=== PATIENT | female | born 1975 | race Caucasian/White ===

== ENCOUNTER 2024-02-08 23:57 | Inpatient (IN) | payer OTHER, SELFPAY ==
[2024-02-08 19:06] VITALS: BP 113/67
[2024-02-08 19:34] VITALS: BP 102/71
[2024-02-08 19:40] VITALS: BMI 33.9
--- NOTE | 2024-02-08 19:44 | EDRN ---
Pt has been having side effects from new chemo, doxyl. Last dose chemo was Friday. Pt being treated for endometrial cancer. Pt has had fevers, fatigue, nausea for couple days. T max 99.8 at home. Pt vomited last night which was only time she
vomited. Pt has chronic dizziness. Pt had diarrhea after triage tonight. Pt having lower back pain currently. Pt took compazine 2 hours ago which helped a little. Pt denies cp, sob, urinary symptoms.
--- NOTE | 2024-02-08 19:50 | EDRN ---
VAT called to access port per pt request
[2024-02-08] MEDS: ZOFRAN 4 MG IV (20:06)
--- NOTE | 2024-02-08 20:12 | EDRN ---
VAT accessing pt's port
[2024-02-08] MEDS: NSS 1000 IV ×2 (20:15→23:01)
[2024-02-08] MEDS: DILAUDID 1 MG IV (20:19)
--- NOTE | 2024-02-08 20:27 | EDRN ---
Second set blood cultures drawn from [facility] without difficulty, pressure dressing applied - pt much more relaxed after dilaudid administration. Pt lying quietly, no long moving constantly to try and relieve back pain. Pt requested this RN insert IV
and draw first set blood cultures prior to VAT accessing port so she could get nausea medication quicker.
[2024-02-08 21:00] VITALS: BP 99/76
[2024-02-08 21:05] LABS: COVID-19 Antigen Negative (Negative)
--- NOTE | 2024-02-08 21:08 | ED.GENMED ---
History of Present Illness
<Carolyn Jefferson PA-C - Last Filed: 02/09/24 03:52>
General
Chief Complaint: Fever
Source: patient
Exam Limitations: none
Time Seen by Provider: 02/08/24 19:58
Nursing documentation reviewed up to this point in time: agreed with
History of Present Illness
History of Present Illness:
pt i a 48 y/o F with h/o recurrent endometrial cancer
initially treated in 2020 with hysterectomy and chemo
had recurrence in august 2023 wiht large abdominal tumor
she is followed by sanjeev zaldivar
was on a chemo but swithced recently and was given first dose on 02/03. she ws told to expect nausea, vomiting, fatigue, fever
she sasy she started feeling badly yesterday with low grade temp 99 and nausae/vmoiting several times. 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
pt has had chronic ongoin lower back pain which is unchanged
she has palpable masses in her abdomen chronically whihc are her tumors
she also had some diarrhea at home
no urinary symptoms cough, headach, sore throat, neck pain
<Devonte Juan MD - Last Filed: 02/08/24 21:40>
Travel History
Have you had any contact with someone who has COVID-19?: No
Do you have any symptoms of coronavirus? Fever > 100 degrees, chills, cough, shortness of breath, sore throat, loss of taste or smell, muscle aches, or headache?: No
Past History
<Carolyn Jefferson PA-C - Last Filed: 02/09/24 03:52>
Social History
Tobacco: Non-smoker
Alcohol: None
Drug: None
<Devonte Juan MD - Last Filed: 02/08/24 21:40>
Past History
ED Past Medical History: Cancer (Endometrial) and GERD
ED Past Surgical History: Cholecystectomy and Gynecological
Review of Systems
<Carolyn Jefferson PA-C - Last Filed: 02/09/24 03:52>
Review of Systems
Allergies reviewed?: Yes
All Other Systems: Not applicable
Phy Exam
<Carolyn Jefferson PA-C - Last Filed: 02/09/24 03:52>
Physical Exam
Physical Exam:
GENERAL: Alert , chronically ill appearing
HEAD: NCAT
EYE: pupils equal and reactive, no nystagmus, photophobia
NECK: Supple,full rom, nontender
ENT: o/p clr, dry
CARDIAC: tachycardic . no edema
LUNGS: Clear breath sounds bilaterally, no acute respiratory distress, no wheezes/rales/rhonchi
ABDOMEN: palpable masses in the abdomen, no significant tendenress, normal bwoelsounds
NEUROLOGICAL: Alert and orientedx 4,
SKIN: Warm and dry, skin intact.
MUSCULOSKELETAL: No edema, well perfused.
PSYCH: Normal and appropriate interaction.
Course
<Carolyn Jefferson PA-C - Last Filed: 02/09/24 03:52>
Orders/Labs/Results
Orders:
Orders
02/08/24 19:58
Electrocardiogram (*1) Urgent
Reason for Study: QTc Monitoring
EKG- Treatment ONCE
02/08/24 20:00
Ondansetron Injectable [Zofran] 4 mg .ROUTE .[facility]
02/08/24 20:03
Blood Culture Q30M
ADRIANA Source: Blood/Venous
Specimen Description:
02/08/24 20:04
Cardiac Monitoring- Treatment ONCE
O2 Therapy [RESP] Urgent
Titrate/Wean O2 to maintain O2 sat greater than (%): 93
Special Instructions: TO MAINTAIN CONTINUOUS O2 SATS > OR = 93%
Pulse Ox/cont/shift [RESP] Urgent
Quantity: 1
Special Instructions: CONTINUOUS
02/08/24 20:06
Ondansetron Injectable [Zofran] 4 mg IV NOW STA
02/08/24 20:09
Complete Blood Count/With Diff Urgent
Comprehensive Metabolic Panel Urgent
Lactic Acid Q4H
Comment: ON ICE, CANCEL 2ND ORDER IF FIRST LACTIC ACID LEVEL <2
Lipase Urgent
02/08/24 20:11
0.9% Sodium Chloride 1000 ml [Nss] 1,000 ml IV BOLUS
HYDROmorphone [Dilaudid] 1 mg IV NOW STA
02/08/24 20:31
Blood Culture Q30M
ADRIANA Source: Blood/Venous
Specimen Description:
02/08/24 20:32
COVID-19 Antigen Urgent
Source: Nasal Swab
Influenza A+B Rapid Molecular Urgent
ADRIANA Source: Nasal Swab
Specimen Description:
02/08/24 22:22
Urinalysis Reflex To Culture Urgent
Date Specimen was Collected: 02/08/24
Time Specimen was Collected: 22:18
02/08/24 22:53
0.9% Sodium Chloride 1000 ml [Nss] 1,000 ml IV BOLUS
Acetaminophen [Tylenol] 1,000 mg PO NOW STA
02/08/24 23:06
CR Chest - 2 Views Urgent
Comment:
Reason For Exam: fever chemo
02/08/24 23:12
Piperacillin/Tazo 3.375 Gram [Zosyn] 3.375 gram in 50 ml IV NOW
02/08/24 23:55
Admit/Transfer Patient As Directed
Co-Sign Provider:
Level of Care: Inpatient admission
Assign to:: Telemetry
Physician / Group: htay
Diagnosis: SIRS pike clinical picture- unclear origin Fever of unclear origin
Reason for Telemetry: Other
Other Reason for Telemetry: SIRS
Date to Stop Telemetry: 02/10/24
Time to Stop Telemetry: 11:00
Reason for Hospitalization: SIRS pike clinical picture- unclear origin
Fever of unclear origin - Infective vs Tumor fever
Significant leucocytosis
Expected length of stay greater than two midnights?: Yes
ELOS- Estimated Length of Stay in days: 3
I certify the patient meets the requirements for IP care: Yes
02/08/24 23:57
Code Status As Directed
Resuscitation Status: Full Code
02/09/24 01:24
0.9% Sodium Chloride 1000 ml [Nss] 1,000 ml IV 100 mls/hr
Calcium Carbonate Chewable [Tums] 1 tablet PO BIDPRN PRN
VANCOMYCIN Pharmacy to Dose [VANCOCIN Pharmacy to Dose] 1 each Pharmacy To Prepare [Call Pharmacy To Prepare] 0 ml IV PER PROTOCOL
02/09/24 01:24
Consult Notification Routine
Specialty to Notify: Infectious Disease
INFECTIOUS DISEASE CONSULT Routine
Consulting Provider: Larissa Swift
Was physician already notified: No
Reason for consult: SIRS pike clinical picture- Fever of unclear origin - Tumor fever vs infect
Activity As Directed
Activity Level: With Assistance
Intake/ Output As Directed
Frequency: Per unit guidelines
Pneumatic Compression Sleeves As Directed
Type: Knee high
Vital Signs As Directed
Frequency: Per unit guidelines
Weight As Directed
Frequency: Daily
DX Deep Vein Thrombosis Video Routine
02/09/24 Breakfast
Clear Liquid
At Your Request: Full Participation
Comment: advance as tolerates
Complete Blood Count/With Diff IN AM
Comprehensive Metabolic Panel IN AM
Piperacillin/Tazo 3.375 Gram [Zosyn] 3.375 gram in 50 ml IV Q6H
02/09/24 08:00
Magnesium l-Lactate [Mag-Tab Sr] 84 mg PO DAILY
Pantoprazole [Protonix] 40 mg PO DAILY
02/09/24 22:00
Famotidine [Pepcid] 20 mg PO HS
Prochlorperazine [Compazine] 10 mg PO HS
02/10/24 11:00
DC Protocol for Telemetry ONCE
Abnormal Lab Results
02/08/24
20:09
WBC 15.0 H 10^3/uL
(4.8-10.8)
RBC 3.40 L 10^6/uL
(4.20-5.40)
Hgb 8.8 L g/dL
(12.0-16.0)
Hct 27.5 L %
(37.0-47.0)
MCV 80.9 L fL
(81.0-99.0)
MCH 25.9 L pg
(27.0-31.0)
MCHC 32.0 L g/dL
(33.0-37.0)
RDW 18.0 H %
(11.5-14.5)
Abs Immat Gran (auto) 0.1 H 10^3/uL
(0-0.05)
Absolute Neuts (auto) 12.9 H 10^3/uL
(1.4-6.5)
Absolute Lymphs (auto) 1.0 L 10^3/uL
(1.2-3.4)
Absolute Monos (auto) 0.9 H 10^3/uL
(0.1-0.6)
Immature Gran % 0.7 H %
(0-0.5)
Neutrophils % 86.3 H %
(42.2-75.2)
Lymphocytes % 6.7 L %
(20.5-51.1)
Sodium 132 L mmol/L
(135-145)
Glucose 120 H mg/dl
(70-99)
AST 114 H U/L
(14-36)
Total Protein 6.1 L g/dl
(6.3-8.2)
02/08/24 20:09
02/08/24 20:09
Vital Signs
Initial and Last Documented VS:
Initial Vital Signs
Temp Pulse Resp BP
98.4 F 127 18 113/67
02/08/24 19:06 02/08/24 19:06 02/08/24 19:06 02/08/24 19:06
Last Documented Vital Signs
Temp Pulse Resp BP Pulse Ox
98.1 F 103 18 101/61 95
02/09/24 03:00 02/09/24 03:00 02/09/24 03:00 02/09/24 03:00 02/09/24 03:00
<Devonte Juan MD - Last Filed: 02/08/24 21:40>
Orders/Labs/Results
Orders:
Orders
02/08/24 19:58
Electrocardiogram (*1) Urgent
Reason for Study: QTc Monitoring
EKG- Treatment ONCE
02/08/24 20:00
Ondansetron Injectable [Zofran] 4 mg .ROUTE .[facility]
02/08/24 20:03
Blood Culture Q30M
ADRIAAN Source: Blood/Venous
Specimen Description:
02/08/24 20:04
Cardiac Monitoring- Treatment ONCE
O2 Therapy [RESP] Urgent
Titrate/Wean O2 to maintain O2 sat greater than (%): 93
Special Instructions: TO MAINTAIN CONTINUOUS O2 SATS > OR = 93%
Pulse Ox/cont/shift [RESP] Urgent
Quantity: 1
Special Instructions: CONTINUOUS
02/08/24 20:06
Ondansetron Injectable [Zofran] 4 mg IV NOW STA
02/08/24 20:09
Complete Blood Count/With Diff Urgent
Comprehensive Metabolic Panel Urgent
Lactic Acid Q4H
Comment: ON ICE, CANCEL 2ND ORDER IF FIRST LACTIC ACID LEVEL <2
Lipase Urgent
02/08/24 20:11
0.9% Sodium Chloride 1000 ml [Nss] 1,000 ml IV BOLUS
HYDROmorphone [Dilaudid] 1 mg IV NOW STA
02/08/24 20:31
Blood Culture Q30M
ADRIANA Source: Blood/Venous
Specimen Description:
02/08/24 20:32
COVID-19 Antigen Urgent
Source: Nasal Swab
Influenza A+B Rapid Molecular Urgent
ADRIANA Source: Nasal Swab
Specimen Description:
02/08/24 22:22
Urinalysis Reflex To Culture Urgent
Date Specimen was Collected: 02/08/24
Time Specimen was Collected: 22:18
02/08/24 22:53
0.9% Sodium Chloride 1000 ml [Nss] 1,000 ml IV BOLUS
Acetaminophen [Tylenol] 1,000 mg PO NOW STA
02/08/24 23:06
CR Chest - 2 Views Urgent
Comment:
Reason For Exam: fever chemo
02/08/24 23:12
Piperacillin/Tazo 3.375 Gram [Zosyn] 3.375 gram in 50 ml IV NOW
02/08/24 23:55
Admit/Transfer Patient As Directed
Co-Sign Provider:
Level of Care: Inpatient admission
Assign to:: Telemetry
Physician / Group: htay
Diagnosis: SIRS pike clinical picture- unclear origin Fever of unclear origin
Reason for Telemetry: Other
Other Reason for Telemetry: SIRS
Date to Stop Telemetry: 02/10/24
Time to Stop Telemetry: 11:00
Reason for Hospitalization: SIRS pike clinical picture- unclear origin
Fever of unclear origin - Infective vs Tumor fever
Significant leucocytosis
Expected length of stay greater than two midnights?: Yes
ELOS- Estimated Length of Stay in days: 3
I certify the patient meets the requirements for IP care: Yes
02/08/24 23:57
Code Status As Directed
Resuscitation Status: Full Code
02/09/24 01:24
0.9% Sodium Chloride 1000 ml [Nss] 1,000 ml IV 100 mls/hr
Calcium Carbonate Chewable [Tums] 1 tablet PO BIDPRN PRN
VANCOMYCIN Pharmacy to Dose [VANCOCIN Pharmacy to Dose] 1 each Pharmacy To Prepare [Call Pharmacy To Prepare] 0 ml IV PER PROTOCOL
02/09/24 01:24
Consult Notification Routine
Specialty to Notify: Infectious Disease
INFECTIOUS DISEASE CONSULT Routine
Consulting Provider: Larissa Swift
Was physician already notified: No
Reason for consult: SIRS pike clinical picture- Fever of unclear origin - Tumor fever vs infect
Activity As Directed
Activity Level: With Assistance
Intake/ Output As Directed
Frequency: Per unit guidelines
Pneumatic Compression Sleeves As Directed
Type: Knee high
Vital Signs As Directed
Frequency: Per unit guidelines
Weight As Directed
Frequency: Daily
DX Deep Vein Thrombosis Video Routine
02/09/24 Breakfast
Clear Liquid
At Your Request: Full Participation
Comment: advance as tolerates
Complete Blood Count/With Diff IN AM
Comprehensive Metabolic Panel IN AM
Piperacillin/Tazo 3.375 Gram [Zosyn] 3.375 gram in 50 ml IV Q6H
02/09/24 08:00
Magnesium l-Lactate [Mag-Tab Sr] 84 mg PO DAILY
Pantoprazole [Protonix] 40 mg PO DAILY
02/09/24 22:00
Famotidine [Pepcid] 20 mg PO HS
Prochlorperazine [Compazine] 10 mg PO HS
02/10/24 11:00
DC Protocol for Telemetry ONCE
Abnormal Lab Results
02/08/24
20:09
WBC 15.0 H 10^3/uL
(4.8-10.8)
RBC 3.40 L 10^6/uL
(4.20-5.40)
Hgb 8.8 L g/dL
(12.0-16.0)
Hct 27.5 L %
(37.0-47.0)
MCV 80.9 L fL
(81.0-99.0)
MCH 25.9 L pg
(27.0-31.0)
MCHC 32.0 L g/dL
(33.0-37.0)
RDW 18.0 H %
(11.5-14.5)
Abs Immat Gran (auto) 0.1 H 10^3/uL
(0-0.05)
Absolute Neuts (auto) 12.9 H 10^3/uL
(1.4-6.5)
Absolute Lymphs (auto) 1.0 L 10^3/uL
(1.2-3.4)
Absolute Monos (auto) 0.9 H 10^3/uL
(0.1-0.6)
Immature Gran % 0.7 H %
(0-0.5)
Neutrophils % 86.3 H %
(42.2-75.2)
Lymphocytes % 6.7 L %
(20.5-51.1)
Sodium 132 L mmol/L
(135-145)
Glucose 120 H mg/dl
(70-99)
AST 114 H U/L
(14-36)
Total Protein 6.1 L g/dl
(6.3-8.2)
02/08/24 20:09
02/08/24 20:09
Vital Signs
Initial and Last Documented VS:
Initial Vital Signs
Temp Pulse Resp BP
98.4 F 127 18 113/67
02/08/24 19:06 02/08/24 19:06 02/08/24 19:06 02/08/24 19:06
Last Documented Vital Signs
Temp Pulse Resp BP Pulse Ox
98.1 F 103 18 101/61 95
02/09/24 03:00 02/09/24 03:00 02/09/24 03:00 02/09/24 03:00 02/09/24 03:00
<Carolyn Jefferson PA-C - Last Filed: 02/09/24 03:52>
MDM/Problems Addressed
Differential Diagnosis Includes:
neutropenia, flu, covid, pna, uti, chemo therapy drug induced fever
MDM/Problems Addressed:
maria luisa evans endometrial cancer on chemo, known abd masses; started new chemo on friday, fatigue, vomiting, low grade temp at home 99; has chronic pain in back but otherwise no other complaints; palpable abdominal masses on exam; wbc 15, not
neutropenic; ua neg, lactate normal blood cultures pending; flu and covid neg; i spoke with oncologist dr. sprague at the [facility] who said this chemo doesn't usualy give high fever, and her temp now is 102 and bp 90s; getting empiric abx per oncology
request
<Carolyn Jefferson PA-C - Last Filed: 02/09/24 03:52>
*Critical Care Note
Total Time (30-74mins, 75-104mins- exclusive of procedures): Not Applicable
<Devonte Juan MD - Last Filed: 02/08/24 21:40>
ED Attending Note
Patient seen and examined by attending physician: Yes
I performed the substantive portion of visit, reviewed & personally made and approve the management plan that is documented in note by myself or MANNY.: Yes
ED Attending Note:
48-year-old female complaining of severe fatigue sleepiness some nausea and vomiting starting the last 48 hours. Patient started a new chemotherapy regimen for her endometrial cancer 3 to 4 days ago. She was told this might be the side effects of
the chemo. She has a borderline temperature. She denies chest pain shortness of breath pleuritic pain she denies new abdominal pain she has ongoing low back pain that is slightly more progressive but has been ongoing. She also is urinating
frequency but has no dysuria flank pain
On exam patient is chronically ill-appearing but nontoxic. Lungs are clear and equal. Heart regular rate and rhythm. Abdomen with multiple palpable masses. No severe tenderness rebound or guarding. Extremities are warm and dry and unremarkable.
Symptoms likely secondary to her chemotherapy although consideration for infectious etiology. She has no lung symptoms. Back issues have been ongoing. She is neurologically stable. Labs and urine pending.
-
Portions of this chart may have been created with voice recognition software.� Occasional wrong word or��sound alike� substitutions may have occurred due to the inherent limitations of voice recognition software.
Discharge Plan
Departure
Patient Disposition: Admit
Date of Disposition: 02/08/24
Time of Disposition: 22:54
Admit to: Med/Surg
Presentation/result/management discussed w/ accepting MD/DO: Hospitalist
Condition: Fair
Covid-19: Negative COVID-19
Discharge Problem:
Fever, Dehydration, Immunocompromised
Interventions
Interventions:
*Risk Screen - Suicide Last Done: 02/08/24 19:06
*General Assessment Last Done: 02/08/24 19:06
*Neglect/Abuse Screening Last Done: 02/08/24 19:06
ED- Fall Risk Assessment Last Done: 02/08/24 20:37
*ED COVID-19 Vaccine History Last Done: 02/08/24 19:40
*Nursing Disposition Last Done: 02/09/24 01:21
ED- Neurological Assessment Last Done: 02/08/24 19:50
ED-Skin Assessment Last Done: 02/08/24 19:50
Discharge Date and Time
Discharge Date/Time: 02/09/24 01:21
[2024-02-08 21:25] LABS: % Basophils 0.1 % (0-2); % Eosinophils 0.1 % (0-6); % Immature Granulocytes 0.7 % (0-0.5); % Lymphocytes 6.7 % (20.5-51.1); % Monocytes 6.1 % (1.7-9.3); % Neutrophils 86.3 % (42.2-75.2); Absolute Immature Granulocytes 0.1 10^3/uL (0-0.05); Absolute Monocytes 0.9 10^3/uL (0.1-0.6); Absolute Neutrophils 12.9 10^3/uL (1.4-6.5); Hematocrit 27.5 % (37.0-47.0); Hemoglobin 8.8 g/dL (12.0-16.0); Mean Corpuscular Hgb 25.9 pg (27.0-31.0); Mean Corpuscular Volume 80.9 fL (81.0-99.0); Mean Platelet Volume 9.9 fL (7.4-10.4); Nucleated Red Blood Cells % 0 %; Platelet Count 329 10^3/uL (130-400)
[2024-02-08 22:32] LABS: Urine Albumin Negative (Neg - Trace); Urine Bilirubin Negative (Negative); Urine Character Clear (Clear); Urine Color Straw; Urine Glucose Negative (Negative); Urine Ketone Negative (Negative); Urine Leukocyte Negative (Negative); Urine Nitrite Negative (Negative); Urine Occult Blood Negative (Negative); Urine Urobilinogen Negative (Neg - 1+)
[2024-02-08 22:42] LABS: ALT (SGPT) 29 U/L (0-35); AST (SGOT) 114 U/L (14-36); Albumin 3.5 g/dl (3.5-5.0); Alkaline Phosphatase 116 U/L (38-126); Blood Urea Nitrogen 12 mg/dl (7-17); Calcium 8.6 mg/dl (8.4-10.2); Carbon Dioxide 28 mmol/L (22-30); Chloride 101 mmol/L (98-107); Estimated Creatinine Clearance 121 ml/min; Glucose 120 mg/dl (70-99); Lipase 48 U/L (23-300); Potassium 3.9 mmol/L (3.5-5.1); Sodium 132 mmol/L (135-145); Total Bilirubin 0.4 mg/dl (0.2-1.3); Total Protein 6.1 g/dl (6.3-8.2); eGFR > 60.00
[2024-02-08 23:00] VITALS: BP 98/67
[2024-02-08] MEDS: TYLENOL 1000 MG PO (23:02)
--- NOTE | 2024-02-08 23:50 | HPS.HSE ---
Family Physician
-
Family Physician: Taurus Schwab
Chief Complaint
-
fever , fatigue, N/V
History of Present Illness
48F HX recurrent endometrial ca CA with large abdominal tumor, on recent new chemo regime- first dose on 02/03 t [facility]
pw fever , fatigue and leucocytosis. Reports several episodes of N/V before onset of low grade fever
N/V is anticipated post chemo by P oncologist.
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
So far she had 1 dose of Compazine today and tylenol CREDIT COLLECTIONS MANAGER
Denied sick exposure
ROS:
Non tender Rt upper chest PORT
Denied urinary symptoms, cough,
Medical History
Past Medical History
Past Medical History: Reports Cancer (Recurrent Endometrial CA , large abdominal tumor )
Past Surgical History: Reports Cholecystectomy and Gynocological (Hysterectomy )
Social History
Tobacco: Non-smoker
Alcohol: None
Drug: None
Family History
Family History: Not pertinent
Allergies / Home Medications
Allergies reflects when Allergies were last updated in [employer].
Home Medications with original date entered in [employer]
Allergy/Medication List:
Allergies
Allergy/AdvReac Type Severity Reaction Status Date / Time
pembrolizumab [From Keytruda] Allergy Unknown Verified 02/08/24 19:42
Sulfa (Sulfonamide Allergy Unknown Verified 01/14/22 16:05
Antibiotics)
sulfamethoxazole Allergy Unknown Verified 02/08/24 19:42
[From Bactrim]
trimethoprim [From Bactrim] Allergy Unknown Verified 02/08/24 19:42
Home Medications
calcium carbonate 200 mg calcium (500 mg) chewable tablet (Tums) 200 mg PO BIDPRN PRN gerd 09/21/23
dicyclomine 10 mg capsule 10 mg PO HS Gastrointestinal Issue 09/21/23
famotidine 20 mg tablet (Pepcid AC) 20 mg PO HS Gastrointestinal Issue 09/21/23
olanzapine 5 mg tablet 5 mg PO HS Mental Health/Anxiety 09/21/23
prochlorperazine maleate 10 mg tablet 10 mg PO HS Gastrointestinal Issue 09/21/23
therapeutic multivitamin 1 tab PO DAILY Supplement 09/21/23
pantoprazole 40 mg tablet,delayed release 40 mg PO DAILY Gastrointestinal issue #30 tabs 09/25/23
magnesium 25 mg PO DAILY 02/08/24
Review of Systems
-
Constitutional: Reports Fever and Fatigue
EENT: Reports No Symptoms
Respiratory: Reports No Symptoms
Cardiac: Reports No Symptoms
Abdomen/GI: Reports Nausea, Vomiting and Diarrhea
: Reports No Symptoms
Musculoskeletal: Reports No Symptoms
Skin: Reports No Symptoms
Neurological: Reports No Symptoms
Endocrine: Reports No Symptoms
Hematologic/Lymphatic: Reports No Symptoms
Psych: Reports No Symptoms
Physical Exam
Vital Signs
Vital Signs
Temp Pulse Resp BP Pulse Ox
102 F H 117 26 98/67 97
02/08/24 22:52 02/08/24 23:00 02/08/24 23:00 02/08/24 23:00 02/08/24 19:34
Physical Exam
General: Well Developed, Well Nourished, Comfortable, Conversant and Other (Not toxic looking ); No Respiratory Distress
HEENT: NormoCephalic and Anicteric
Respiratory: Clear; No Wheezes or Rhonchi
Cardiac: S1/S2, Regular Rhythm and Tachycardia (chronic )
Breast: Deferred by me
GI: Soft, Non Tender, Non Distended and Normal Bowel Sounds
Genito-urinary: Deferred by me
Musculoskeletal: No Edema
Skin: Warm
Neuro: AO x 3 and Nonfocal/grossly intact
Psych: Calm
Laboratory Results
-
02/08/24 20:09
02/08/24 20:09
Laboratory Results
Lactic Acid 1.0 mmol/L (0.7-2.0) 02/08/24 20:09
Total Bilirubin 0.4 mg/dl (0.2-1.3) 02/08/24 20:09
AST 114 U/L (14-36) H 02/08/24 20:09
ALT 29 U/L (0-35) 02/08/24 20:09
Alkaline Phosphatase 116 U/L (38-126) 02/08/24 20:09
Lipase 48 U/L (23-300) 02/08/24 20:09
Data Reviewed
-
Lab Data: Labs Reviewed by me
Old Records: Reviewed
Impression/Plan
-
Data
WCC 15 - not neutropenic
Hgb 8.8 - baseline mid to hi 7s
Na 132
nl eGFR
NEG UA
Nl LA
NEG FLU/Covid
BCx sent
Pending CXR
Last hospitalist admission: 09/21/23 - 09/25/23
DC Dxs: acute GIB suspected source was small bowel. ACBLA required 6 units of PRBCs , NEG EGD and colonoscopy for source
ASSESSMENT & PLAN
Fever of unclear origin - Infective vs Tumor fever
Significant leucocytosis
Immunocompromised host
On chemo since 02/15/24 @ [facility] for Endometrial carcinoma with peritoneal adenopathy
- NEG UA
- Nl LA
- NEG FLU/Covid
- BCx sent
- Pending CXR
- Empiric IV vanco and Zosyn
- ID consult
HX recurrent endometrial CA in 2022 with large abdominal tumor followed at [facility]
Initially treated in 2020 with hysterectomy and chemo
- on recent new chemo regime- first dose on 02/03
ACDz due to cancer dz
stable HGb 8s
Hemodynamically stable
Known HX tachycardia
Hemodynamically stable.
DVT Px: SCD
Code: Full code
IP TLM
[2024-02-09] VITALS (7 sets, daily range): BP systolic 98–109; BP diastolic 53–66; BMI 34.1
[2024-02-09] MEDS: ZOSYN 50 IV ×3 (00:10→11:48)
--- NOTE | 2024-02-09 00:17 | EDRN ---
Called pharmacy for vancomycin
[2024-02-09] MEDS: VANCOCIN 540 MG IV (00:40)
[2024-02-09] MEDS: NSS 1000 IV ×3 (02:07→23:07)
[2024-02-09] MEDS: BENADRYL 25 MG PO (02:09)
--- NOTE | 2024-02-09 02:18 | PTCARENOTE ---
pt arrived from ed with vanco running, pt aaox3, tele placed, VSS. pt c/o head being very itchy. JOHN Barone notified and rate decreased on vanco and benadryl given. see MAR and assessment for further details. call willett within reach.
[2024-02-09] MEDS: ZOFRAN 4 MG IV (04:43)
--- NOTE | 2024-02-09 08:32 | PHA.VAN.IN ---
Assessment
- Assessment
Renal Function: Appears similar to baseline
Maximum Temperature: 102 F - 02/07 22:52
Concomitant Antimicrobials: piperacillin/tazobactam
AUC Dosing Plan
- Dosing Variables
Dosing Weight (kg): 99
Dosing CrCl (ml/min): 121
Vd coefficient (L/kg): 0.7
- Empiric Dosing
Initial / Loading Dose: 2000mg - 02/08 00:40
Maintenance Regimen: Vanc 1500mg Q12H starting at 1800
Estimated AUC (mcg*h/mL): 445
Estimated Peak (mcg*h/mL): 30.2
Estimated Trough (mcg/ml): 10.1
Estimated Half Life (H): 6.6
Will hold off on slowing infusion rate for now but if further reactions develop, can consider infusing 1500mg dose over 2.5H (120 ml/h)
- Monitoring
No levels ordered at this time: consider levels in next few days
Pharmacokinetics Vancomycin I
- -
Patient Age: 48
Patient Sex: Female
Vancomycin Day #: 1
Indication: Other
Requesting Provider: Dr. Cherry
Pertinent Antimicrobial Allergies:
sulfonamide antibiotics - unknown
Height / Weight:
Height 5 ft 7 in
Actual Weight 98.656 kg
Pertinent Past Medical History: BMI ~34, Endometrial cancer
- Vital Signs / Lab Results
Temp Pulse Resp BP Pulse Ox
98.5 F 106 17 106/59 96
02/09/24 07:00 02/09/24 07:00 02/09/24 07:00 02/09/24 07:00 02/09/24 07:00
Lab Results - Hematology
02/08/24
20:09
WBC 15.0 H
Lab Results - Chemistry
02/08/24
20:09
BUN 12
Creatinine 0.7
Estimated Creat Clear 121
Albumin 3.5
02/08/24 02/09/24 02/09/24
20:09 01:24 05:24
Lactic Acid 1.0 Cancelled Cancelled
02/09/24 02/09/24
09:24 13:24
Lactic Acid Cancelled Cancelled
Lab Results - Urine
02/08/24
22:22
Urine Nitrite (Reflex) Negative
Leukocyte Esterase Rfl Negative
Microbiology Results
02/08/24 20:32 Influenza Types A & B ([facility]) - Final
Nasal Swab Negative for Influenza A & B, NAAT
Negative results must be combined with clinical observations
and patient history.
Nucleic Acid Amplification test (NAAT)performed on the
[employer] platform.
[2024-02-09 08:36] LABS: ALT (SGPT) 24 U/L (0-35); AST (SGOT) 92 U/L (14-36); Albumin 2.9 g/dl (3.5-5.0); Alkaline Phosphatase 113 U/L (38-126); Blood Urea Nitrogen 10 mg/dl (7-17); Calcium 8.1 mg/dl (8.4-10.2); Carbon Dioxide 26 mmol/L (22-30); Chloride 103 mmol/L (98-107); Estimated Creatinine Clearance 121 ml/min; Glucose 95 mg/dl (70-99); Potassium 3.7 mmol/L (3.5-5.1); Sodium 134 mmol/L (135-145); Total Bilirubin 0.4 mg/dl (0.2-1.3); Total Protein 5.2 g/dl (6.3-8.2); eGFR > 60.00
[2024-02-09] MEDS: PROTONIX 40 MG PO (08:37)
[2024-02-09] MEDS: MAG-TAB SR 84 MG PO (08:37)
[2024-02-09 08:50] LABS: % Basophils 0.2 % (0-2); % Eosinophils 0.6 % (0-6); % Lymphocytes 4.6 % (20.5-51.1); % Neutrophils 88.6 % (42.2-75.2); Absolute Eosinophils 0.1 10^3/uL (0-0.7); Absolute Immature Granulocytes 0.1 10^3/uL (0-0.05); Absolute Lymphocytes 0.5 10^3/uL (1.2-3.4); Absolute Monocytes 0.6 10^3/uL (0.1-0.6); Absolute Neutrophils 9.8 10^3/uL (1.4-6.5); Hematocrit 24.1 % (37.0-47.0); Hemoglobin 7.3 g/dL (12.0-16.0); Mean Corp Hgb Conc. 30.3 g/dL (33.0-37.0); Mean Corpuscular Hgb 25.3 pg (27.0-31.0); Mean Corpuscular Volume 83.4 fL (81.0-99.0); Mean Platelet Volume 10.7 fL (7.4-10.4); Nucleated Red Blood Cells % 0 %; Platelet Count 270 10^3/uL (130-400); Red Blood Cell Count 2.89 10^6/uL (4.20-5.40); Red Cell Dist. Width 17.9 % (11.5-14.5); White Blood Cell Count 11.1 10^3/uL (4.8-10.8)
--- NOTE | 2024-02-09 10:56 | W.PN.HOSP.TC ---
Today's Communication/Plan
-
.
Assessment / Plan
Assessment / Plan
Physical Exam
General: Comfortable, Conversant and Other (Not toxic looking ); No Respiratory Distress
HEENT: Normocephalic and Anicteric. Bald
Respiratory: Clear; No Wheezes or Rhonchi
Cardiac: S1/S2, Regular Rhythm and Tachycardia (chronic )
GI: Soft, Positive palpable tumor mid-abdomen.
Genito-urinary: No Rosado
Musculoskeletal: No Edema
Skin: Warm
Neuro: AO x 3 and Nonfocal/grossly intact
Psych: Calm
Fever of unclear origin - Infective vs Tumor fever
Positive leucocytosis. WBC is coming down
Immunocompromised host
On chemo since 02/15/24 @ [facility] for Endometrial carcinoma with peritoneal adenopathy
- NEG UA
- Nl LA
- NEG FLU/Covid
-No erythema or tenderness around right upper chest port
- BCx is pending
- CXR no infiltrates. No hypoxia or cough
- Empiric IV vanco and Zosyn
- ID consult appreciated.
HX� recurrent endometrial CA in 2022 with large abdominal tumor, followed at [facility]
Initially treated in 2020 with hysterectomy and chemo
- on recent new� chemo regime-� first dose on 02/03
WIll get records
# Anemia of inflammation/chronic disease
stable HGb 7-8 s
Hemodynamically stable
#Known HX tachycardia
Hemodynamically stable.
# Hyponatremia
No confusion
�Total time spent to see the patient, examine the patient on the floor, review data and lab results, discuss treatment plan with the patient, nursing staff around 55 minutes
Anticipated Discharge: > 48 hours
Subjective/Interval History
-
Date of Service: February 09, 2024
No abd pain this morning
She would like to eat more food
No chest pain
Objective Data
-
Labs:
Laboratory Results
02/09/24
07:35
WBC 11.1 H
Hgb 7.3 L
Hct 24.1 L
Plt Count 270
Sodium 134 L
Potassium 3.7
Chloride 103
Carbon Dioxide 26
BUN 10
Creatinine 0.7
Glucose 95
Calcium 8.1 L
Total Bilirubin 0.4
AST 92 H
ALT 24
Alkaline Phosphatase 113
Vital Signs:
Vital Signs
Temp Pulse Resp BP Pulse Ox
98.5 F 106 17 106/59 96
02/09/24 07:00 02/09/24 07:00 02/09/24 07:00 02/09/24 07:00 02/09/24 07:00
--- NOTE | 2024-02-09 12:46 | CON.ID ---
Addendum entered and electronically signed by Yolanda Mix MD 02/09/24 16:42:
oncology called back
she was on liposomal doxorubicin - not typically associated with fevers
did get decadron during the infusion for questionable infusion reaction
oncology would be in agreement with early follow up with them if she remains well
Original Note:
Consultation
-
Date/Time Consultation Requested: 02/09/24 1:24
Date/Time Consultation Performed: 02/09/24 12:47
Requesting Provider: Dr Cherry
Performing Provider: Dr Mix
Reason for Consultation: 'SIRS pike clinical picture- Fever of unclear origin - Tumor fever vs infec
Chief Complaint / Past History
Chief Complaint
fever , fatigue, N/V
History of Present Illness
Ms Cortez is a 48 year old female with recurrent endometrial cancer with large abdominal tumor (first diagnosis 2020 hysterectomy/chemo; 09/15 recurrence, was start on keytruda howver with progression, now s/p first dose new chemotherapy -
docetaxil? on 02/03) presented here yesterday for fever, diarrhea, nausea, vomiting fatigue and leukocytosis. Was reportedly No sick contacts. No tenderness over the port. No: sinus tenderness, sore throat, cough, sputum production, neck pain,
headache, further diarrhea today, dysuria, new rashes or swollen extremities. Port was used for keytruda and has been functional. No sick contacts, has been around a family members dog who is healthy and well. Has good family support.
Since arrival here tmax 102 orally - fever curve may be improving, bp mildly hypotensive 98/53, mild tachycardia, wbc on arrival 15 now 11.0, hgb 7.3 (near her baseline), plt 270, L shift is noted, eos are present, cr 0.7, lactic acid 1.0, UA
negative, covid ag neg, CXR: clear lung anguiano, currently on vancomycin and zosyn. ID is consulted for assistance with therapy.
Past History
Additional Past Medical History:
Recurrent Endometrial CA , large abdominal tumor
obese
Additional Past Surgical History:
�Cholecystectomy and Gynecological (Hysterectomy )
Allergy History:
pembrolizumab [From Keytruda] Allergy (Verified 02/08/24 19:42)
Unknown
Sulfa (Sulfonamide Antibiotics) Allergy (Verified 01/14/22 16:05)
Unknown
sulfamethoxazole [From Bactrim] Allergy (Verified 02/08/24 19:42)
Unknown
trimethoprim [From Bactrim] Allergy (Verified 02/08/24 19:42)
Unknown
Medications Reviewed: Yes
Social History
Tobacco: Non-Smoker
Alcohol: None
Drug: None
Family History
Family History: Not Pertinent
Review of Systems
Review of Systems
General: Negative Fever or Chills
All systems: All other systems were reviewed and were negative
Vital Signs
Temp Pulse Resp BP Pulse Ox
98 F 112 16 98/53 95
02/09/24 11:11 02/09/24 11:11 02/09/24 11:11 02/09/24 11:11 02/09/24 11:11
Physical Exam
Physical Exam
Constitutional: No Acute Distress
Cardiovascular: Regular Rate and S1/S2; Negative Murmur or Rub
Pulmonary: Clear and Symmetric; Negative Wheezes, Rales or Rhonchi
Gastrointestinal: Soft, Non Tender, Non Distended, Normal Bowel Sounds and Other (large, tender palpable abdominal mass)
Skin: Warm and Dry; Negative Rash or Jaundice
Neurological: Awake and Alert
Lab / Diagnostic Study Results
02/09/24 07:35
02/09/24 07:35
Abs Immat Gran (auto) 0.1 10^3/uL (0-0.05) H 02/09/24 07:35
Absolute Neuts (auto) 9.8 10^3/uL (1.4-6.5) H 02/09/24 07:35
Absolute Lymphs (auto) 0.5 10^3/uL (1.2-3.4) L 02/09/24 07:35
Absolute Monos (auto) 0.6 10^3/uL (0.1-0.6) 02/09/24 07:35
Absolute Basos (auto) 0.0 10^3/uL (0-0.2) 02/09/24 07:35
Immature Gran % 1.0 % (0-0.5) H 02/09/24 07:35
Neutrophils % 88.6 % (42.2-75.2) H 02/09/24 07:35
Lymphocytes % 4.6 % (20.5-51.1) L 02/09/24 07:35
Monocytes % 5.0 % (1.7-9.3) 02/09/24 07:35
Eosinophils % 0.6 % (0-6) 02/09/24 07:35
Basophils % 0.2 % (0-2) 02/09/24 07:35
Lactic Acid Cancelled 02/09/24 13:24
Microbiology Results
Micro:
02/08/24 20:32 Influenza Types A & B ([facility]) - Final
Nasal Swab Negative for Influenza A & B, NAAT
Negative results must be combined with clinical observations
and patient history.
Nucleic Acid Amplification test (NAAT)performed on the
[employer] platform.
02/08/24 20:03 Blood Culture - Pending
Blood/Venous
02/08/24 20:31 Blood Culture - Pending
Blood/Venous
Assessment / Plan
Fever
Endometrial carcinoma with peritoneal adenopathy
- DDX: fever may be related to chemotherapy if indeed on docetaxil, tumor fever, perhaps a viral URI (low concern), low concern for a bacterial infection at this point
- CXR clear, port nontender, ua neg, covid ag/flu pcr negative
- blood cultures x2 in progress no growth to date
- start levofloxacin for now; stop vancomycin/zosyn
- repeat two view CXR in the evening
- message left for her oncologist
Hyperglycemia
- check a1c in the am
Care Review
Plan reviewed with: Physician (Dr Arteaga )
[2024-02-09] MEDS: PEPCID 20 MG PO (21:40)
[2024-02-09] MEDS: COMPAZINE 10 MG PO (21:40)
--- NOTE | 2024-02-09 21:40 | PTCARENOTE ---
Pt complained of 6/10 pain in LUQ. P tachycardic, 100's- 110's. BOX [employer] CHECKER made aware, new orders provided, see MAR. Will continue to monitor.
[2024-02-09] MEDS: DILAUDID 0.5 MG IV (21:54)
[2024-02-10 03:03] VITALS: BP 108/59
[2024-02-10 07:30] VITALS: BP 97/61
[2024-02-10] MEDS: MAG-TAB SR 84 MG PO (07:46)
[2024-02-10] MEDS: PROTONIX 40 MG PO (07:46)
[2024-02-10] MEDS: TYLENOL 1000 MG PO (07:50)
[2024-02-10] MEDS: NSS 1000 IV (07:51)
[2024-02-10 08:32] LABS: Glycohemoglobin (HgbA1c) 5.5 % (4.0-5.6)
--- NOTE | 2024-02-10 10:47 | W.DCSUMMARY ---
Discharge Summary
Discharge Data
Date of Admission: 02/08/24
Date of Discharge: 02/10/24
-
Pending Results: No
Hospital Course
48 years old female presented with fever. Patient was admitted for observation in the hospital. She did not have recurrent fever. She had positive leukocytosis but her white count started to come down. She had negative screening for influenza
and COVID infection. She did not have signs of cellulitis. Port site was clean with no discharge or tenderness. Patient was on �liposomal doxorubicin. She received Decadron during infusion for questionable infusion reaction. Blood culture
remained negative while in the hospital. Repeat chest radiography did not show infiltrate. She was evaluated by infectious diseases insurance consultant. Patient remained hemodynamically stable and was discharged in a stable condition. Patient had history
of endometrial cancer and her primary oncology service was notified.
Physical Exam
General: Comfortable, Conversant and Other (Not toxic looking ); No Respiratory Distress
HEENT: Normocephalic and Anicteric. Bald
Respiratory: Clear; No Wheezes or Rhonchi
Cardiac: S1/S2, Regular Rhythm.
GI: Soft, Positive palpable tumor mid-abdomen.
Genito-urinary: No Rosado
Musculoskeletal: No Edema
Skin: Warm
Neuro: AO x 3 and Nonfocal/grossly intact
Psych: Calm, pleasant.
Total discharge time spent to see the patient, examine the patient on the floor, review data and lab results, discuss discharge plan with the patient, nursing staff around 65 minutes
Discharge Plan
-
Patient Disposition: Home (Routine Discharge)
Discharge Diagnosis/Procedures: Fever, resolved
Your blood culture is negative so far. You were seen by infectious diseases insurance consultant. No need for antibiotics.
You will need to make an appointment with your oncologist for follow-up.
Diet: As tolerated
Referrals:
Taurus Schwab MD [Family Provider] - in one week
Prescriptions:
Continued
olanzapine 5 mg tablet
5 mg PO HS
therapeutic multivitamin Tablet
1 tab PO DAILY
prochlorperazine maleate 10 mg Tablet
10 mg PO HS
famotidine [Pepcid AC] 20 mg Tablet
20 mg PO HS
calcium carbonate [Tums] 200 mg calcium (500 mg) Tablet,Chewable
200 mg PO BIDPRN PRN (Reason: gerd)
dicyclomine 10 mg Capsule
10 mg PO HS
pantoprazole 40 mg Tablet,Delayed Release (Dr/Ec)
40 mg PO DAILY Qty: 30 0RF
magnesium
25 mg PO DAILY
Discharge Orders:
Discharge Patient (As Directed); Ordered 02/10/24
Ordered By: Yaneli Arteaga
[2024-02-10 11:40] VITALS: BP 109/61
== END 2024-02-10 13:24 | disposition home or self-care (01) | DRG 864 ==
LOC: 3 WEST ACU 23:57
PROVIDERS: Physician Assistant; ADMITTING PHYSICIAN Internal Medicine; ATTENDING PHYSICIAN Internal Medicine; EMERGENCY PHYSICIAN Emergency Medicine; FAMILY PHYSICIAN Family Medicine; OTHER PHYSICIAN Student in an Organized Health Care Education/Training Program
DX: R50.9 Fever, unspecified (principal); D84.9 Immunodeficiency, unspecified; E87.1 Hypo-osmolality and hyponatremia; Z11.52 Encounter for screening for COVID-19; Z85.42 Personal history of malignant neoplasm of other parts of uterus
CPT/HCPCS: 71046; 80053; 81003; 83036; 83605; 83690; 85025; 87040; 87502; 87811; 93005; 96361; 96374; 96375; 99285

== ENCOUNTER 2024-03-09 08:28 | Inpatient (IN) | payer OTHER, SELFPAY ==
[2024-03-06] VITALS (12 sets, daily range): BP systolic 69–130; BP diastolic 39–108
--- NOTE | 2024-03-06 21:22 | ED.GENMED ---
History of Present Illness
General
Chief Complaint: Weakness
Source: patient
Exam Limitations: none
Time Seen by Provider: 03/06/24 20:59
Travel History
Have you had any contact with someone who has COVID-19?: No
Do you have any symptoms of coronavirus? Fever > 100 degrees, chills, cough, shortness of breath, sore throat, loss of taste or smell, muscle aches, or headache?: No
History of Present Illness
History of Present Illness:
This is a 48 year old female that comes in with c/o fatigue. States that she just feels tired and exhausted. States that she hasn't been eating. States that she just had Chemo on Friday but can't remember the name. States that she has had a fever
of 99.9 with chills, abd pain, nausea, headache, dizziness. Denies any chest pain, SOB, vomiting, diarrhea, urinary burning.
Past History
Past History
ED Past Medical History: Cancer (Endometrial), GERD, Psychiatric (Anxiety, ) and Other (Sciatic pain, Sleep apnea, UTI, )
ED Past Surgical History: Cholecystectomy and Gynecological (Hysterectomy)
Social History
Tobacco: Non-smoker
Alcohol: None
Drug: None
Personal: Single
Living: with family
Review of Systems
Review of Systems
All Other Systems: ROS reviewed and negative except as documented in HPI and ROS
Constitutional: Reports fever and chills
EENT: Reports no symptoms
Respiratory: Reports no symptoms; Denies cough or trouble breathing
Cardiac: Reports no symptoms; Denies chest pain
ABD/GI: Reports abdominal pain and nausea; Denies vomiting or diarrhea
: Reports no symptoms; Denies dysuria, frequency or urgency
Musculoskeletal: Reports no symptoms
Skin: Reports no symptoms
Neurological: Reports dizzy and headache
Psychiatric: Reports no symptoms
Phy Exam
General Physical Exam
General Presentation: no apparent distress
General age: appears stated age
General Skin: warm and dry
General Habitus: normal
General Mental: alert
General Hydration: dry mucous membranes
ENT Exam
ENT Exam: TM's normal, pharynx normal and neck supple
Eye Exam
Eye Exam: EOMI
Cardiovascular Exam
Cardiovascular Exam: no edema, normal peripheral pulses and tachycardia
Pulmonary Exam
Pulmonary Exam: lungs clear, no respiratory distress, no rales, chest non tender, no crackles, no rhonchi, no wheezing and no cough
Gastrointestinal Exam
Gastrointestinal Exam: no pulsatile mass and other (Hard abd mass noted left and upper abd. Generalized tenderness with palpation, Hypoactive bowel sounds)
Musculoskeletal Exam
Musculoskeletal Exam: full ROM and no edema
Skin Exam
Skin Exam: normal color, warm/dry, no rash and no petechia
Psychiatric Exam
Psychiatric Exam: normal mood/affect
Course
Orders/Labs/Results
Orders:
Orders
03/06/24 20:22
Electrocardiogram (*1) Urgent
Reason for Study: Bradycardia / Tachycardia
EKG- Treatment ONCE
03/06/24 21:20
0.9% Sodium Chloride 1000 ml [Nss] 1,000 ml IV BOLUS
Acetaminophen 1000MG/100Ml [Ofirmev] 1,000 mg in 100 ml IV ONCE
Acetaminophen IV Indication:: ED Narcotic Naive Pt-ONCE
Ondansetron Injectable [Zofran] 4 mg IV NOW STA
03/06/24 21:21
CR Chest - 2 Views Urgent
Comment:
Reason For Exam: FEVER
03/06/24 21:26
COVID-19 Antigen Urgent
Source: Nasal Swab
Complete Blood Count/With Diff Urgent
Comprehensive Metabolic Panel Urgent
Lactic Acid Q4H
Comment: CANCEL 2nd LACTIC ACID IF 1st LACTIC ACID IS LESS THAN 2
Blood Culture Q30M
ADRIANA Source: Blood/Venous
Specimen Description:
Influenza A+B Rapid Molecular Urgent
ADRIANA Source: Nasal Swab
Specimen Description:
03/06/24 21:52
Urinalysis Reflex To Culture Urgent
Date Specimen was Collected: 03/06/24
Time Specimen was Collected: 21:50
Urine Microscopic Reflex Cult Urgent
Blood Culture Q30M
ADRIANA Source: Blood/Venous
Specimen Description:
03/06/24 22:59
Piperacillin/Tazo 3.375 Gram [Zosyn] 3.375 gram in 50 ml IV NOW
03/07/24 01:30
Lactic Acid Q4H
Comment: CANCEL 2nd LACTIC ACID IF 1st LACTIC ACID IS LESS THAN 2
Abnormal Lab Results
03/06/24 03/06/24
21:26 21:52
WBC 23.7 H 10^3/uL
(4.8-10.8)
RBC 3.85 L 10^6/uL
(4.20-5.40)
Hgb 9.3 L g/dL
(12.0-16.0)
Hct 29.3 L %
(37.0-47.0)
MCV 76.1 L fL
(81.0-99.0)
MCH 24.2 L pg
(27.0-31.0)
MCHC 31.7 L g/dL
(33.0-37.0)
RDW 19.9 H %
(11.5-14.5)
Plt Count 450 H 10^3/uL
(130-400)
Abs Immat Gran (auto) 0.5 H 10^3/uL
(0-0.05)
Absolute Neuts (auto) 19.8 H 10^3/uL
(1.4-6.5)
Absolute Lymphs (auto) 1.1 L 10^3/uL
(1.2-3.4)
Absolute Monos (auto) 2.3 H 10^3/uL
(0.1-0.6)
Immature Gran % 1.9 H %
(0-0.5)
Neutrophils % 83.6 H %
(42.2-75.2)
Lymphocytes % 4.6 L %
(20.5-51.1)
Monocytes % 9.8 H %
(1.7-9.3)
Sodium 133 L mmol/L
(135-145)
Chloride 94 L mmol/L
(98-107)
Carbon Dioxide 31 H mmol/L
(22-30)
Glucose 123 H mg/dl
(70-99)
AST 122 H U/L
(14-36)
ALT 40 H U/L
(0-35)
Total Protein 5.9 L g/dl
(6.3-8.2)
Leukocyte Esterase Rfl Trace A
(Negative)
03/06/24 21:26
03/06/24 21:26
Leukocytosis, H/H improved from prior lab, Plt elevation. Sodium slightly low Chloride low, Carbon dioxide slighly elevated. Glucose nonfasting. AST/ALT elevation. Total protein slightly low. Lactic acid normal t 1.5, Urine negative for infection.
COVID and Influenza are normal.
Vital Signs
Initial and Last Documented VS:
Initial Vital Signs
Temp Pulse Resp BP Pulse Ox
99.3 F 146 16 107/70 95
03/06/24 20:22 03/06/24 20:22 03/06/24 20:22 03/06/24 20:22 03/06/24 20:22
Last Documented Vital Signs
Temp Pulse Resp BP Pulse Ox
98.1 F 125 36 105/71 92
03/06/24 22:26 03/06/24 22:15 03/06/24 22:15 03/06/24 22:00 03/06/24 21:47
MDM/Problems Addressed
Differential Diagnosis Includes:
Neutropenia, Dehydration, COVID, Influenza
MDM/Problems Addressed:
This is a 48 year old female that comes in with c/o feeling tired and exhausted. States that she has chemo on Friday but doesn't remember the name. Patient states that she has also had a fever with chills, abd pain, and nausea. State that she is
not eating. States that she has a headache and dizziness.
Will get labs, IV fluids. blood culture and lactic, Chest x-ray and urine.
Back into see patient. Questioned if she is on Neupogen or something to help elevated her WBC's. Patient doesn't know. Explained that her chest X-ray is normal, urine is negative for infection. Lactic acid is normal. Will give IV Zosyn and admit.
Hospitalist notified.
Chronic conditions affecting care: Cancer
Acute Exacerbation and/or Progression of Chronic Illness: Cancer
*Radiology
Radiology exam reviewed: preliminary read by ED provider (Chest- negative for active disease)
*Pulse Oximetry
Patient hypoxic: no
*EKG
Interpreted by ED Provider?: Yes
Heart Rate: 137
Rhythm: sinus tachycardia
[place]: normal axis
Interval: normal interval
QRS Pattern: normal QRS
Ischemia: no ischemia
*Pressure Dispatcher Interpretation
Rate: tachycardiac
Heart Rate: 144
Rhythm: sinus tachycardia
*Critical Care Note
Total Time (30-74mins, 75-104mins- exclusive of procedures): Not Applicable
ED Attending Note
-
Portions of this chart may have been created with voice recognition software.� Occasional wrong word or��sound alike� substitutions may have occurred due to the inherent limitations of voice recognition software.
Discharge Plan
Departure
Patient Disposition: Admit
Date of Disposition: 03/06/24
Time of Disposition: 23:06
Admit to: Telemetry
Presentation/result/management discussed w/ accepting MD/DO: Hospitalist
Patient with high blood pressure during this ER visit?: No
Condition: Good
Covid-19: Negative COVID-19
Discharge Problem:
Fever
Prescriptions:
No Action
olanzapine 5 mg tablet
5 mg PO HS
therapeutic multivitamin Tablet
1 tab PO DAILY
prochlorperazine maleate 10 mg Tablet
10 mg PO HS
famotidine [Pepcid AC] 20 mg Tablet
20 mg PO HS
calcium carbonate [Tums] 200 mg calcium (500 mg) Tablet,Chewable
200 mg PO BIDPRN PRN (Reason: gerd)
dicyclomine 10 mg Capsule
10 mg PO HS
pantoprazole 40 mg Tablet,Delayed Release (Dr/Ec)
40 mg PO DAILY Qty: 30 0RF
magnesium
25 mg PO DAILY
Referrals:
Taurus Schwab MD [Family Provider] -
Interventions
Interventions:
*Risk Screen - Suicide Last Done: 03/06/24 20:22
*General Assessment Last Done: 03/06/24 20:22
*Neglect/Abuse Screening Last Done: 03/06/24 20:22
ED- Fall Risk Assessment Last Done: 03/06/24 21:04
*ED COVID-19 Vaccine History Last Done: 03/06/24 20:22
ED- Cardiac Assessment Last Done: 03/06/24 21:04
ED- Neurological Assessment Last Done: 03/06/24 21:04
ED- Pulmonary Assessment Last Done: 03/06/24 21:04
Discharge Date and Time
Print Language: SLOVAK
[2024-03-06] MEDS: ZOFRAN 4 MG IV (21:30)
[2024-03-06] MEDS: NSS 1000 IV (21:30)
[2024-03-06] MEDS: OFIRMEV 100 IV (21:30)
[2024-03-06 21:59] LABS: % Basophils 0.1 % (0-2); % Immature Granulocytes 1.9 % (0-0.5); % Lymphocytes 4.6 % (20.5-51.1); % Monocytes 9.8 % (1.7-9.3); % Neutrophils 83.6 % (42.2-75.2); Absolute Immature Granulocytes 0.5 10^3/uL (0-0.05); Absolute Lymphocytes 1.1 10^3/uL (1.2-3.4); Absolute Monocytes 2.3 10^3/uL (0.1-0.6); Absolute Neutrophils 19.8 10^3/uL (1.4-6.5); Hematocrit 29.3 % (37.0-47.0); Hemoglobin 9.3 g/dL (12.0-16.0); Mean Corp Hgb Conc. 31.7 g/dL (33.0-37.0); Mean Corpuscular Hgb 24.2 pg (27.0-31.0); Mean Corpuscular Volume 76.1 fL (81.0-99.0); Nucleated Red Blood Cells % 0.2 %; Platelet Count 450 10^3/uL (130-400); Red Blood Cell Count 3.85 10^6/uL (4.20-5.40); Red Cell Dist. Width 19.9 % (11.5-14.5); White Blood Cell Count 23.7 10^3/uL (4.8-10.8)
[2024-03-06 22:09] LABS: Lactic Acid 1.5 mmol/L (0.7-2.0)
[2024-03-06 22:15] LABS: ALT (SGPT) 40 U/L (0-35); AST (SGOT) 122 U/L (14-36); Albumin 3.5 g/dl (3.5-5.0); Alkaline Phosphatase 113 U/L (38-126); Blood Urea Nitrogen 13 mg/dl (7-17); COVID-19 Antigen Negative (Negative); Calcium 9.4 mg/dl (8.4-10.2); Carbon Dioxide 31 mmol/L (22-30); Chloride 94 mmol/L (98-107); Glucose 123 mg/dl (70-99); Potassium 4.2 mmol/L (3.5-5.1); Sodium 133 mmol/L (135-145); Total Bilirubin 0.5 mg/dl (0.2-1.3); Total Protein 5.9 g/dl (6.3-8.2); eGFR > 60.00
[2024-03-06 22:22] LABS: Urine Albumin Trace (Neg - Trace); Urine Bilirubin Negative (Negative); Urine Character Slightly Cloudy (Clear); Urine Color Yellow; Urine Glucose Negative (Negative); Urine Ketone Negative (Negative); Urine Leukocyte Trace (Negative); Urine Nitrite Negative (Negative); Urine Occult Blood Negative (Negative); Urine Urobilinogen Negative (Neg - 1+)
[2024-03-06 22:27] LABS: Urine Red Blood Cell None Seen /HPF (0-2); Urine Squamous Cell >30 /LPF (Few)
[2024-03-06] MEDS: ZOSYN 50 IV (23:02)
--- NOTE | 2024-03-06 23:22 | HPS.HSE ---
Family Physician
<JOHN Ferris - Last Filed: 03/06/24 23:55>
-
Family Physician: Taurus Schwab
Chief Complaint
<JOHN Ferris - Last Filed: 03/06/24 23:55>
-
Fatigue, headache, dizziness, nausea, abdominal pain post chemo
History of Present Illness
48-year-old female complaining of fatigue with decreased appetite. She states she had chemo and neutropenic medication given on Friday 4 days ago and is reporting a low-grade fever of 99.9 with chills, abdominal pain, nausea, headache,
dizziness. She denies chest pain, palpitations, shortness of breath vomiting, diarrhea, urinary symptoms. She is a very poor historian with poor memory recall. She has history of endometrial cancer with abdominal tumors and is being treated at
[facility]
She had a recent admission 02/07 - 02/10/2024 for fever of unclear etiology. She had leukocytosis which resolved negative blood cultures she was on chemotherapy of liposomal doxorubicin. Other past medical history includes GERD, anxiety, sciatica,
sleep apnea, UTI.
Medical History
<JOHN Ferris - Last Filed: 03/06/24 23:55>
Past Medical History
Past Medical History: Reports Cancer and Other
Additional Past Medical History:
endometrial CA 2022 with large abdominal tumor follows at [facility]
Treated 2020 with hysterectomy and chemo
GERD
anxiety
sciatica
sleep apnea
UTI.
Past Surgical History: Reports Cholecystectomy and Gynocological (Hysterectomy )
Social History
Tobacco: Non-smoker
Alcohol: None
Drug: None
Personal: Single
Living: With Family (Lives with parents)
Employment: Disabled
Family History
Family History: Not pertinent
Allergies / Home Medications
Allergies reflects when Allergies were last updated in [employer] [facility].
Home Medications with original date entered in [employer] [facility]
Allergy/Medication List:
Allergies
Allergy/AdvReac Type Severity Reaction Status Date / Time
pembrolizumab [From Keytruda] Allergy Unknown Verified 03/06/24 21:12
Sulfa (Sulfonamide Allergy Unknown Verified 03/06/24 21:12
Antibiotics)
sulfamethoxazole Allergy Unknown Verified 03/06/24 21:12
[From Bactrim]
trimethoprim [From Bactrim] Allergy Unknown Verified 03/06/24 21:12
Home Medications
calcium carbonate (Tums) 200 mg PO BIDPRN PRN gerd 09/21/23
dicyclomine 10 mg capsule 10 mg PO HS Gastrointestinal Issue 09/21/23
famotidine 20 mg tablet (Pepcid AC) 20 mg PO HS Gastrointestinal Issue 09/21/23
olanzapine 5 mg tablet 5 mg PO HS Mental Health/Anxiety 09/21/23
prochlorperazine maleate 10 mg tablet 10 mg PO HS Gastrointestinal Issue 09/21/23
pantoprazole 40 mg tablet,delayed release 40 mg PO DAILY Gastrointestinal issue #30 tabs 09/25/23
Review of Systems
Chloelt;JOHN Ferris - Last Filed: 03/06/24 23:55>
-
History Source: Patient
A 12 point ROS was completed and negative except as noted: Yes
Constitutional: Reports Fatigue, Chills and Other (Poor historian with memory impairment)
EENT: Denies Sore Throat or Runny Nose
Respiratory: Denies Cough or Trouble Breathing
Cardiac: Denies Chest Pain, Diaphoresis, Palpitations or Syncope
Abdomen/GI: Reports Abdominal Pain and Nausea; Denies Vomiting, Diarrhea or Constipated
: Denies Dysuria, Frequency, Flank Pain, Incontinence or Difficulty Voiding
Musculoskeletal: Denies Joint Pain or Edema
Skin: Denies Itching or Rash
Neurological: Reports Headache and Weakness; Denies Dizzy
Endocrine: Reports No Symptoms
Hematologic/Lymphatic: Reports No Symptoms
Psych: Reports Calm
Physical Exam
<JOHN Ferris - Last Filed: 03/06/24 23:55>
Vital Signs
Vital Signs
Temp Pulse Resp BP Pulse Ox
98.1 F 125 36 105/71 92
03/06/24 22:26 03/06/24 22:15 03/06/24 22:15 03/06/24 22:00 03/06/24 21:47
Physical Exam
General: Chills; No Fever
HEENT: NormoCephalic, Anicteric and PERRLA
Respiratory: Clear; No Wheezes or Rales
Cardiac: S1/S2 and Regular Rhythm; No Murmur, Rub or Gallop
Breast: Deferred by me
GI: Non Tender, Normal Bowel Sounds and Other (Large palpable hard abdominal tumor mid to entire left side abdomen)
Rectal: Deferred by Provider
Genito-urinary: Deferred by me
Musculoskeletal: No Clubbing, No Cyanosis and No Edema
Skin: Warm and Dry; No Rash
Neuro: AO x 3 (But very poor historian with memory impairment unclear of medications, staging of cancer, dates times); No Slurred Speech, Facial Droop or Tremors
Psych: Calm
Laboratory Results
<JOHN Ferris - Last Filed: 03/06/24 23:55>
-
03/06/24 21:26
03/06/24 21:26
Laboratory Results
Lactic Acid 1.5 mmol/L (0.7-2.0) 03/06/24 21:26
Total Bilirubin 0.5 mg/dl (0.2-1.3) 03/06/24 21:26
AST 122 U/L (14-36) H 03/06/24 21:26
ALT 40 U/L (0-35) H 03/06/24 21:26
Alkaline Phosphatase 113 U/L (38-126) 03/06/24 21:26
Data Reviewed
<JOHN Ferris - Last Filed: 03/06/24 23:55>
-
Lab Data: Labs Reviewed by me
Impression/Plan
<JOHN Ferris - Last Filed: 03/06/24 23:55>
-
Impression/plan:
Observation MedSurg
#Acute leukocytosis ? reactive vs Neutropenic agent unknown name
Immunocompromise patient on current chemo [facility] endometrial carcinoma with peritoneal adenopathy
WBC 23.7 was 11.1 on discharge 02/09/2024
-Patient reports received injection on Friday of neutropenic agent to increase her WBC count
COVID/flu negative
-Repeat blood cultures x 2, UA/ EXCHANGE ADMINISTRATOR, lactic acid 1.5
- follow cbc
#Side effects of Chemo
# Chronic poor memory impairment
Chemo 4 days ago doxorubicin-post fatigue, nausea, abdominal pain, headache, dizziness
-Tylenol as needed headache
- Iv zofran
- Iv Nss 100 cc/hr
Pt/Ot case mgmt consult
#Hypotension likely secondary to volume depletion
94/66
IV NSS 1 L given in ER continue 100 cc an hour
-Check orthostatic vitals in a.m.
#History of recurrent endometrial CA 2022 with large abdominal tumor follows at [facility]-patient unclear of stage
Treated 2020 with hysterectomy and chemo? /Completed course of Keytruda unsure when
On new chemo regimen first dose was 02/03, second dose 03/03/2024 gets every 4 weeks
-Port left upper chest wall
#Chronic transaminitis
#History of known endometrial CA mets to abdomen
Follow CMP
#Anemia of chronic disease
Hgb 9.3, hemoglobin baseline 7-8
#History of known tachycardia
DVT prophylaxis
SCDs
Full code
<Nina Sandhu MD - Last Filed: 03/07/24 00:09>
-
Impression/plan:
Observation MedSurg
#Acute leukocytosis ? reactive vs Neutropenic agent unknown name
Immunocompromise patient on current chemo [facility] endometrial carcinoma with peritoneal adenopathy
WBC 23.7 was 11.1 on discharge 02/09/2024
-Patient reports received injection on Friday of neutropenic agent to increase her WBC count
COVID/flu negative
-Repeat blood cultures x 2, UA/ EXCHANGE ADMINISTRATOR, lactic acid 1.5
- follow cbc
#Side effects of Chemo
# Chronic poor memory impairment
Chemo 4 days ago doxorubicin-post fatigue, nausea, abdominal pain, headache, dizziness
-Tylenol as needed headache
- Iv zofran
- Iv Nss 100 cc/hr
Pt/Ot case mgmt consult
#Hypotension likely secondary to volume depletion
/
IV NSS 1 L given in ER continue 100 cc an hour
-Check orthostatic vitals in a.m.
#History of recurrent endometrial CA 2022 with large abdominal tumor follows at [facility]-patient unclear of stage
Treated 2020 with hysterectomy and chemo? /Completed course of Keytruda unsure when
On new chemo regimen first dose was 02/03, second dose 03/03/2024 gets every 4 weeks
-Port left upper chest wall
#Chronic transaminitis
#History of known endometrial CA mets to abdomen
Follow CMP
#Anemia of chronic disease
Hgb 9.3, hemoglobin baseline 7-8
#History of known tachycardia
DVT prophylaxis
SCDs
Full code
Attending Addendum:
This is a 47-year-old female with past medical history significant for endometrial cancer initially treated with chemotherapy and now with recent recurrence status post Keytruda with progression and now on liposomal doxorubicin who presents to the
emergency department with any nausea, somnolence and lethargy. Low-grade temp of 99 reported at home with a Tmax of 100.3 in the ED. Chest x-ray was clear. COVID was negative. Flu was negative. UA was negative. Abdominal exam showed the known
abdominal mass without peritoneal signs. She has no diarrhea. She reports decreased p.o. intake. In ED found to have leukocytosis to 23,000 but labs otherwise unremarkable. Lactic acid was negative. Unlikely acute infectious process.
Leukocytosis secondary to neutrophil stimulating agent administration.
- admit to [facility], blood cultures, hold off further abx for now, except leukoytosis to peak and decline
- supportive care with iv fluids, antiemetics and pain control
- tachycardia is known, no chest pain and no calf tenderness. Unlikely VTE.
[2024-03-07 00:34] VITALS: BP 106/69
[2024-03-07 00:35] VITALS: BMI 32.7
[2024-03-07] MEDS: TYLENOL 650 MG PO ×2 (01:03→21:05)
[2024-03-07] MEDS: NSS 1000 IV ×2 (01:03→10:35)
[2024-03-07] MEDS: PEPCID 20 MG PO ×2 (01:05→21:04)
[2024-03-07] MEDS: ZYPREXA 5 MG PO ×2 (01:06→21:04)
[2024-03-07 01:39] LABS: % Basophils 0.1 % (0-2); % Eosinophils 0.1 % (0-6); % Immature Granulocytes 1.7 % (0-0.5); % Lymphocytes 5.1 % (20.5-51.1); % Monocytes 8.2 % (1.7-9.3); % Neutrophils 84.8 % (42.2-75.2); Absolute Immature Granulocytes 0.3 10^3/uL (0-0.05); Absolute Monocytes 1.6 10^3/uL (0.1-0.6); Absolute Neutrophils 16.3 10^3/uL (1.4-6.5); Hematocrit 26.1 % (37.0-47.0); Hemoglobin 8.3 g/dL (12.0-16.0); Mean Corp Hgb Conc. 31.8 g/dL (33.0-37.0); Mean Corpuscular Hgb 24.3 pg (27.0-31.0); Mean Corpuscular Volume 76.5 fL (81.0-99.0); Mean Platelet Volume 9.9 fL (7.4-10.4); Nucleated Red Blood Cells % 0.2 %; Platelet Count 325 10^3/uL (130-400); Red Blood Cell Count 3.41 10^6/uL (4.20-5.40); Red Cell Dist. Width 19.8 % (11.5-14.5); White Blood Cell Count 19.2 10^3/uL (4.8-10.8)
[2024-03-07 01:52] LABS: Lactic Acid 1.2 mmol/L (0.7-2.0)
[2024-03-07 01:55] LABS: ALT (SGPT) 38 U/L (0-35); AST (SGOT) 118 U/L (14-36); Alkaline Phosphatase 98 U/L (38-126); Blood Urea Nitrogen 13 mg/dl (7-17); Calcium 8.7 mg/dl (8.4-10.2); Carbon Dioxide 31 mmol/L (22-30); Chloride 97 mmol/L (98-107); Estimated Creatinine Clearance 104 ml/min; Glucose 117 mg/dl (70-99); Potassium 3.9 mmol/L (3.5-5.1); Sodium 134 mmol/L (135-145); Total Bilirubin 0.6 mg/dl (0.2-1.3); Total Protein 5.3 g/dl (6.3-8.2); eGFR > 60.00
[2024-03-07] MEDS: ZOFRAN 4 MG IV ×3 (01:55→21:01)
[2024-03-07] MEDS: ROXICODONE 5 MG PO (05:31)
[2024-03-07 06:00] VITALS: BMI 32.6
[2024-03-07 07:45] VITALS: BP 104/60
[2024-03-07] MEDS: PROTONIX 40 MG PO (09:11)
[2024-03-07] MEDS: LIDOCAINE 4% PATCH 1 PATCH TOPICAL (10:34)
[2024-03-07 12:00] VITALS: PULSE 130; O2SAT 95
--- NOTE | 2024-03-07 14:49 | CM ---
CM met with pt, mother and father bedside
Pt resides with her parents in a [place] with 4STE
Father has dementia
Pt is independent with her ADLs, denies use fo ADs
Pt denies hx with VN/SNF
Has a cpap at home which she no longer uses
PCP- Taurus Schwab
Rx- [facility]
Mother concerned that pt will be laid off come beginning of April 2024 and w/o insurance
Provided MA info and application process
Also provided counseling resources per her request
Pt is listed as having [employer] M/C
Pt has both a BC and [employer]na card on chart
Pt notes she likely gets her insurance through employer benefits
Plan to follow up on insurance clarification and whether she has [facility] benefits
Discharge Disposition- home, follow for needs
--- NOTE | 2024-03-07 14:51 | PHA.VAN.IN ---
Assessment
- Assessment
Renal Function: Appears similar to baseline (0.7 on 02/09/24)
Maximum Temperature: 100.3 on 03/06/24 at 21:12
Minimum Temperature: 98.0 on 03/07/24 at 00:34
Concomitant Antimicrobials: Cefepime, Metronidazole
AUC Dosing Plan
- Dosing Variables
Dosing Weight (kg): 94.4
Dosing CrCl (ml/min): 104
Vd coefficient (L/kg): 0.6
- Empiric Dosing
Initial / Loading Dose: Vancomycin 2000mg IV x 1 administration pending
Maintenance Regimen: Vancomycin 1250mg IV Q12hrs starting 03/08/24 at 06:00
Estimated AUC (mcg*h/mL): 520
Estimated Peak (mcg*h/mL): 33
Estimated Trough (mcg/ml): 13
Estimated Half Life (H): 7.6
- Monitoring
No levels ordered at this time: Will order levels according to vancomycin dosing protocol
Pharmacokinetics Vancomycin I
- -
Patient Age: 48
Patient Sex: Female
Vancomycin Day #: 1
Indication: Other
Requesting Provider: Dr Cali Alvarez
Pertinent Antimicrobial Allergies:
Sulfa and trimethoprim with unknown reaction
Height / Weight:
Height 5 ft 7 in
Actual Weight 94.393 kg
IBW in k.6
Adjusted BW in k.7
Pertinent Past Medical History: endometrial ca lipos doxrubicin tx 03/03/24 w/G CSF, rec hosp January, BMI~32
- Vital Signs / Lab Results
Temp Pulse Resp BP Pulse Ox
98.7 F 131 16 104/60 95
03/07/24 10:40 03/07/24 07:45 03/07/24 07:45 03/07/24 07:45 03/07/24 07:45
Lab Results - Hematology
03/06/24 03/07/24
21:26 01:32
WBC 23.7 H 19.2 H
Lab Results - Chemistry
03/06/24 03/07/24
21:26 01:32
BUN 13 13
Creatinine 0.8 0.8
Estimated Creat Clear 104
Albumin 3.5 3.0 L
03/06/24 03/07/24
21:26 01:32
Lactic Acid 1.5 1.2
Lab Results - Urine
03/06/24
21:52
Urine Nitrite (Reflex) Negative
Leukocyte Esterase Rfl Trace A
Urine WBC (Reflex) 3-5
Ur Squamous Epith Cells >30
Microbiology Results
03/06/24 21:26 Influenza Types A & B (MARIA DEL ROSARIO) - Final
Nasal Swab Negative for Influenza A & B, NAAT
Negative results must be combined with clinical observations
and patient history.
Nucleic Acid Amplification test (NAAT)performed on the
[employer] platform.
[2024-03-07] MEDS: MAXIPIME 2000 MG IV (15:24)
[2024-03-07] MEDS: STERILE WATER FOR INJECTION 10 ML IV (15:24)
[2024-03-07] MEDS: FLAGYL 500 MG 100 IV (15:24)
[2024-03-07] MEDS: TUMS 1 TABLET PO ×2 (15:28→21:03)
[2024-03-07 15:45] VITALS: BP 106/59
--- NOTE | 2024-03-07 16:10 | W.PN.HOSP.TC ---
Today's Communication/Plan
-
Infectious treatment and workup in progress
Tachycardia appears to be chronic -- but if patient has new symptoms e.g. chest pain, shortness of breath, hypoxia, change in heart rhythm, then additional work-up will be needed
Empiric antibiotics for now with coverage for GI source given reported abdominal pain
CT A/P ordered
Assessment / Plan
Assessment / Plan
Physical Exam
General: Not in acute distress -- appears chronically ill
HEENT: Normocephalic
Respiratory: Clear to Auscultation Bilaterally
Cardiac: S1/S2 and Regular Rhythm. Tachycardia.
GI: Non Tender, Normal Bowel Sounds and Other (Large palpable hard abdominal tumor mid to entire left side abdomen)
Musculoskeletal: No Cyanosis and No Edema
Skin: Warm and Dry
Neuro: AAO x 3 (But very poor historian with memory impairment unclear of medications, staging of cancer, dates times)
Psych: Calm
Assessment/Plan
47-year-old female with past medical history significant for endometrial cancer initially treated with chemotherapy and now with recent recurrence status post Keytruda with progression and now on liposomal doxorubicin who presented to the emergency
department with any nausea, somnolence and lethargy. Low-grade temp of 99 reported at home with a Tmax of 100.3 in the ED. Chest x-ray was clear. COVID was negative. Flu was negative. UA was negative. Abdominal exam showed the known abdominal
mass without peritoneal signs. She had no diarrhea. She reported decreased p.o. intake. In the emergency department, she found to have leukocytosis to 23,000 but labs were otherwise unremarkable. Lactic acid was negative. Unlikely acute
infectious process. Leukocytosis secondary to neutrophil stimulating agent administration.
#Acute leukocytosis ? reactive vs Neutropenic agent unknown name vs. infection
Immunocompromise patient on current chemo [facility] endometrial carcinoma with peritoneal adenopathy
WBC 23.7 was 11.1 on discharge 02/09/2024
-Patient reports received injection on Friday03/03/24 of neutropenic agent to increase her WBC count
COVID/flu negative
-Repeat blood cultures x 2, UA/ ROCK LOADER, lactic acid 1.5
-Recheck morning labs
-Consulted Infectious Disease, appreciate recommendations
-Ordered CT Abdomen/Pelvis
-Vanco/Flagyl/Cefepime for now
-Follow blood cultures
#Chronic Sinus Tachycardia
-Discussed with on-call dope mixer via [place] [employer] on March 07, 2024
-Also review previous cardiology consultation note from a recent hospitalization in Fall 2022
-Hydration, treat anemia, malignancy
-Echocardiogram
#Side effects of Chemo
# Chronic poor memory impairment
Chemo ~4 days prior to presentation doxorubicin-post fatigue, nausea, abdominal pain, headache, dizziness
-Tylenol as needed headache
- Iv zofran
- Iv hydration especially secondary to tachycardia
Pt/Ot case mgmt consult
#Hypotension likely secondary to volume depletion
94/
IV NSS 1 L given in ER [id number] cc an hour
-Check orthostatic vitals
-Patient also not eating/drinking much
#History of recurrent endometrial CA 2022 with large abdominal tumor follows at [facility]-patient unclear of stage
Treated 2020 with hysterectomy and chemo? /Completed course of Keytruda unsure when
On new chemo regimen first dose was 02/03, second dose 03/03/2024 gets every 4 weeks
-Port left upper chest wall
#Chronic transaminitis
#History of known endometrial CA mets to abdomen
Follow CMP
#Anemia of chronic disease
Hgb 9.3, hemoglobin baseline 7-8
Transfuse as needed
#History of known tachycardia
DVT prophylaxis
Lovenos
Full code
Anticipated Discharge: > 48 hours
Subjective/Interval History
-
Date of Service: March 07, 2024
Patient was seen and examined. She reported some intermittent pain, especially with movement, but otherwise denied any other new symptoms. She is having very poor appetite.
Objective Data
-
Vital Signs:
Vital Signs
Temp Pulse Resp BP Pulse Ox
98.7 F 131 16 104/60 95
03/07/24 10:40 03/07/24 07:45 03/07/24 07:45 03/07/24 07:45 03/07/24 07:45
I&O
03/06/24 03/07/24 03/08/24
06:59 06:59 06:59
Intake Total 1280 / 1280
Output Total 50 / 50
Balance 1230 / 1230
[2024-03-07] MEDS: VANCOCIN 540 MG IV (16:22)
[2024-03-07] MEDS: OMNIPAQUE 50 ML PO (16:23)
[2024-03-07] MEDS: LOVENOX 40 MG SC (17:18)
--- NOTE | 2024-03-07 18:23 | PTCARENOTE ---
Patient placed on telemetry per MD order, HR on monitor sinus tach in 130s at rest, 150s when ambulating in room. Patient denies any chest pain or SOB. MD made aware, no new orders at this time.
[2024-03-07] MEDS: COMPAZINE PO (21:04)
[2024-03-07] MEDS: VITAMIN B1 100 MG PO (21:05)
[2024-03-07] MEDS: BENTYL 10 MG PO (21:06)
[2024-03-07 22:48] VITALS: BP 109/60
[2024-03-08] VITALS (7 sets, daily range): BP systolic 95–116; BP diastolic 55–66; PULSE 114–119; O2SAT 97; BMI 32.6
[2024-03-08] MEDS: STERILE WATER FOR INJECTION 10 ML IV ×2 (00:45→08:49)
[2024-03-08] MEDS: MAXIPIME 2000 MG IV ×2 (00:45→08:49)
[2024-03-08] MEDS: FLAGYL 500 MG 100 IV ×2 (00:51→08:49)
[2024-03-08] MEDS: NSS 1000 IV ×2 (03:52→17:01)
[2024-03-08] MEDS: VANCOCIN 275 MG IV (05:34)
[2024-03-08] MEDS: ZOFRAN 4 MG IV ×2 (05:41→15:16)
--- NOTE | 2024-03-08 08:20 | PTOTSP ---
Speech Language Pathology
Pt seen for clinical bedside swallow evaluation. Pt reported decreased appetite, but no difficulty swallowing. CXR clear. P.O. trials of puree, regular solids, and thin liquids provided. Adequate mastication, bolus formation, and A-P transit
noted with no oral residue. No overt signs of aspiration.
Recommend:
(1) Regular solids/thin liquids
(2) General aspiration precautions
(3) Meds as tolerated
(4) MAINTENANCE ENGINEER to sign off. Please reconsult as indicated.
[2024-03-08] MEDS: NSS IV (08:48)
[2024-03-08] MEDS: VITAMIN B1 100 MG PO ×2 (08:49→21:32)
[2024-03-08] MEDS: LIDOCAINE 4% PATCH TOPICAL (08:49)
[2024-03-08] MEDS: PROTONIX 40 MG PO (08:49)
--- NOTE | 2024-03-08 09:24 | PHA.VAN.FU ---
Vancomycin Assessment / Plan
- Assessment
Renal Function: Stable
WBC's are: Trending Down
In the past 24 hrs, patient has been: Afebrile
Concomitant Antimicrobials: cefepime, metronidazole
- Dosing Plan
Continue: Vanc 1250mg Q12H
- Monitoring Plan
No level(s) ordered at this time: consider levels in next few days
- Follow Up
Pharmacy will continue to follow.
Vancomycin Follow UP
- -
Patient Age: 48
Patient Sex: Female
Vancomycin Day #: 2
Indication: Other
Requesting Provider: Dr Cali Alvarez
Pertinent Antimicrobial Allergies:
Sulfamethoxazole/trimethoprim - unknown
Height / Weight:
Height 5 ft 7 in
Actual Weight 94.393 kg
IBW in k.6
Adjusted BW in k.7
Pertinent Past Medical History: endometrial ca lipos doxrubicin tx 03/03/24 w/G CSF, rec hosp January, BMI~32
- Vital Signs / Lab Results
Temp Pulse Resp BP Pulse Ox
98.2 F 114 17 105/55 94
03/08/24 07:00 03/08/24 07:00 03/08/24 07:00 03/08/24 07:00 03/08/24 07:00
Lab Results - Hematology
03/06/24 03/07/24
21:26 01:32
WBC 23.7 H 19.2 H
Lab Results - Chemistry
03/06/24 03/07/24
21:26 01:32
BUN 13 13
Creatinine 0.8 0.8
Estimated Creat Clear 104
Albumin 3.5 3.0 L
03/06/24 03/07/24
21:26 01:32
Lactic Acid 1.5 1.2
Microbiology Results
03/06/24 21:52 Blood Culture - Preliminary
Blood/Venous No Growth in 24 hours- Final report to follow
03/06/24 21:26 Blood Culture - Preliminary
Blood/Venous No Growth in 24 hours- Final report to follow
03/06/24 21:26 Influenza Types A & B (MARIA DEL ROSARIO) - Final
Nasal Swab Negative for Influenza A & B, NAAT
Negative results must be combined with clinical observations
and patient history.
Nucleic Acid Amplification test (NAAT)performed on the
[employer] platform.
--- NOTE | 2024-03-08 10:23 | PTCARENOTE ---
Pt. ST on monitor. At rest patient sustaining in 120s-140s. When ambulating patient goes as high as 200s. No c/o of CP or SOB. Pt. states ' I can feel my heart pounding.' made aware.
--- NOTE | 2024-03-08 12:44 | W.PN.HOSP.TC ---
Today's Communication/Plan
-
CBC
TSH
D-dimer
Assessment / Plan
Assessment / Plan
Gen-AAOx3, NAD
HEENT-NC, AT, anicteric, clear oral mm
Neck-supple
CV-reg, no M, +S1/S2, mildly tachycardic
Lungs-clear B/L
Abd-soft, NT, ND
Ext-no edema
Musculoskeletal-no cyanosis, clubbing
Skin-warm and dry
Neuro-grossly non-focal
Psych-calm, cooperative
SIRS -no evidence of infection currently. Suspect leukocytosis related to high-dose steroid administration last week with her chemotherapy. Blood cultures negative so far. COVID and influenza negative. Started on empiric antibiotics on
admission. Low threshold to discontinue.
White blood cell count trending down. CT abdomen pelvis without signs of obvious infection.
Chronic Sinus Tachycardia -for completeness we will check TSH and D-dimer. Patient states she does not take levothyroxine at home.
Hypotension - likely secondary to volume depletion. Blood pressure appears to be at baseline.
Recurrent endometrial CA 2022 with large abdominal tumor follows at [facility]-patient unclear of stage. Last dose of chemotherapy was a week ago.
Treated 2020 with hysterectomy and chemo? /Completed course of Keytruda unsure when
On new chemo regimen first dose was 02/03, second dose 03/03/2024 gets every 4 weeks
-Port left upper chest wall
#Chronic transaminitis
#History of known endometrial CA mets to abdomen
Follow CMP
Chronic anemia -microcytic. Outpatient follow-up.
Obesity due to excess calories
Full code
Anticipated Discharge: Within 24 hours
Subjective/Interval History
-
Date of Service: March 08, 2024
Patient seen and examined. Feeling better today compared to yesterday. No complaints.
Objective Data
-
Vital Signs:
Vital Signs
Temp Pulse Resp BP Pulse Ox
98.4 F 111 16 97/60 100
03/08/24 11:00 03/08/24 11:00 03/08/24 11:00 03/08/24 11:00 03/08/24 11:00
I&O
03/07/24 03/08/24 03/09/24
06:59 06:59 06:59
Intake Total 1280 / 1280 2775 / 2775
Output Total 50 / 50
Balance 1230 / 1230 2775 / 2775
Review of Systems
-
History Source: Patient
All other systems: Reviewed and negative
[2024-03-08 13:11] LABS: % Basophils 0.1 % (0-2); % Eosinophils 0.4 % (0-6); % Immature Granulocytes 1.4 % (0-0.5); % Lymphocytes 3.4 % (20.5-51.1); % Monocytes 3.8 % (1.7-9.3); % Neutrophils 90.9 % (42.2-75.2); Absolute Eosinophils 0.1 10^3/uL (0-0.7); Absolute Immature Granulocytes 0.3 10^3/uL (0-0.05); Absolute Lymphocytes 0.7 10^3/uL (1.2-3.4); Absolute Monocytes 0.8 10^3/uL (0.1-0.6); Absolute Neutrophils 18.8 10^3/uL (1.4-6.5); Hematocrit 25.5 % (37.0-47.0); Hemoglobin 7.7 g/dL (12.0-16.0); Mean Corp Hgb Conc. 30.2 g/dL (33.0-37.0); Mean Corpuscular Hgb 24.2 pg (27.0-31.0); Mean Corpuscular Volume 80.2 fL (81.0-99.0); Mean Platelet Volume 10.5 fL (7.4-10.4); Nucleated Red Blood Cells % 0 %; Platelet Count 315 10^3/uL (130-400); Red Blood Cell Count 3.18 10^6/uL (4.20-5.40); Red Cell Dist. Width 19.8 % (11.5-14.5); White Blood Cell Count 20.7 10^3/uL (4.8-10.8)
--- NOTE | 2024-03-08 13:21 | CM ---
Reviewed the chart notes and spoke with the patient at the bedside. The patient is admitted under observational status. The Observational Letter was provided and explained. The patient had no questions with regards to the letter.
The patient anticipates being discharged to home with no needs.
Plan: Discharge to home when medically stable. No needs identified at this time.
[2024-03-08 13:29] LABS: D-Dimer 6.51 ug/mlFEU (0.00-0.50)
--- NOTE | 2024-03-08 14:02 | CON.ID ---
Consultation
-
Date/Time Consultation Requested: March 07, 2024 1414
Date/Time Consultation Performed: March 08, 2024 1400
Requesting Provider: Dr. Mario Alvarez
Performing Provider: Dr. Larissa Swift
Reason for Consultation: Treat w/ antibiotics for a possible infection?
Chief Complaint / Past History
Chief Complaint
Fatigue, poor appetite
History of Present Illness
History obtained from the patient as well as from her mother at bedside. She is a 48-year-old female with endometrial cancer diagnosed 2020 status post hysterectomy chemo and radiation, with recurrence of cancer, large tumor in the abdomen with
peritoneal studding and receive second of four cycles of doxorubicin on March 03. This time she received steroid today prior, the day of and the day after chemotherapy. Also she received granulocyte stimulating factor injection. After
chemotherapy, she developed profound weakness, poor appetite, not eating or drinking. No fevers at home. No nausea or vomiting. No diarrhea. No abdominal pain. No urinary symptoms. No cough or shortness of breath. She came to the hospital on
March 06. CT of the abdomen pelvis shows the large tumor with mild to moderate bilateral hydronephrosis, but slightly progressed. Yesterday she was started on vancomycin, cefepime, and metronidazole. Today patient reports she feels slightly
improved. No ill contacts.
Past History
Additional Past Medical History:
Endometrial cancer s/p hysterectomy, XRT (2020, chemo (2021) with recurrence (2022)
Mild diverticulitis
sciatica
anxiety
port placement
Cholecystectomy
Allergy History:
pembrolizumab [From Keytruda] Allergy (Verified 03/06/24 21:12)
Unknown
Sulfa (Sulfonamide Antibiotics) Allergy (Verified 03/06/24 21:12)
Unknown
sulfamethoxazole [From Bactrim] Allergy (Verified 03/06/24 21:12)
Unknown
trimethoprim [From Bactrim] Allergy (Verified 03/06/24 21:12)
Unknown
Medications Reviewed: Yes
Current Antibiotics:
Vancomycin d2
cefepime d2
metronidazole
Social History
Tobacco: Non-Smoker
Alcohol: Occasional
Drug: None
Family History
Family History: Not Pertinent
Review of Systems
Review of Systems
General: Chills and Change in Appetite; Negative Fever
HEENT: Negative Stiff Neck, Sinus Problems, Headache or Pharyngitis
Cardiovascular: Palpitations; Negative Chest Pain or Edema
Respiratory: Negative Cough
Gasteroenterology: Negative Nausea or Vomiting
Genital / Urological: Negative Dysuria
Endocrine: Weakness
Skin / Hair / Nails: Negative Rash
Neurological: Negative Headache or Dizziness
Vital Signs
Temp Pulse Resp BP Pulse Ox
98.4 F 111 16 97/60 100
03/08/24 11:00 03/08/24 11:00 03/08/24 11:00 03/08/24 11:00 03/08/24 11:00
Physical Exam
Physical Exam
Constitutional: No Acute Distress and Obese
Head: Other (No frontal or maxillary sinus tenderness)
Eyes: No Conjunctival Hemorrhage and Sclera Anicteric
Pharynx: Benign
Oral: No Thrush
Cardiovascular: S1/S2 and Other (tachycardic)
Gastrointestinal: Non Tender and Distended (firm)
Genito-Urinary: Negative CVA Tenderness
Extremities: Negative Edema
Neurological: AO x 3
Lines: Port (site not accessed, no erythema)
Lab / Diagnostic Study Results
03/08/24 12:56
03/07/24 01:32
Abs Immat Gran (auto) 0.3 10^3/uL (0-0.05) H 03/08/24 12:56
Absolute Neuts (auto) 18.8 10^3/uL (1.4-6.5) H 03/08/24 12:56
Absolute Lymphs (auto) 0.7 10^3/uL (1.2-3.4) L 03/08/24 12:56
Absolute Monos (auto) 0.8 10^3/uL (0.1-0.6) H 03/08/24 12:56
Absolute Basos (auto) 0.0 10^3/uL (0-0.2) 03/08/24 12:56
Immature Gran % 1.4 % (0-0.5) H 03/08/24 12:56
Neutrophils % 90.9 % (42.2-75.2) H 03/08/24 12:56
Lymphocytes % 3.4 % (20.5-51.1) L 03/08/24 12:56
Monocytes % 3.8 % (1.7-9.3) 03/08/24 12:56
Eosinophils % 0.4 % (0-6) 03/08/24 12:56
Basophils % 0.1 % (0-2) 03/08/24 12:56
Lactic Acid 1.2 mmol/L (0.7-2.0) 03/07/24 01:32
Ur Squamous Epith Cells >30 /LPF (Few) 03/06/24 21:52
Microbiology Results
Micro:
03/06/24 21:52 Blood Culture - Preliminary
Blood/Venous No Growth in 24 hours- Final report to follow
03/06/24 21:26 Blood Culture - Preliminary
Blood/Venous No Growth in 24 hours- Final report to follow
03/06/24 21:26 Influenza Types A & B ([facility]) - Final
Nasal Swab Negative for Influenza A & B, NAAT
Negative results must be combined with clinical observations
and patient history.
Nucleic Acid Amplification test (NAAT)performed on the
[employer] platform.
03/07/24 CT a/p: Redemonstration of large heterogeneous soft tissue mass within the anterior abdomen and pelvis measuring up to 24.6 x 16.2 x 24.1 cm, increased from prior and most in keeping with recurrent endometrial carcinoma. Increased
right-sided peritoneal implant.
2. Slightly progressed mild to moderate bilateral hydronephrosis.
03/06/24 CXR: No acute pulmonary process identified. Apparent enlargement main pulmonary artery suggesting possible pulmonary arterial hypertension as seen prior.
Assessment / Plan
# Stage IV recurrent endometrial CA s/p 2nd cycle doxorubicin, plus steroid, and GMSF 03/03.
# Leukocytosis - suspect due to recent steroid + GMSF
# Fatigue, poor po intake, weakness after chemo
- no infectious etiology identified.
- DC Vancomycin/cefepime/metronidazole.
Observe off abx.
[2024-03-08] MEDS: TYLENOL 650 MG PO ×2 (14:11→21:35)
--- NOTE | 2024-03-08 14:25 | CON.ONC ---
Impression
Impression
Recurrent endometrial cancer
Anemia, denies bleeding
Leukocytosis suspect steroids, monitor for infection
Plan
Plan
Daily CBC. Check reticulocyte count. Suspect hemoglobin today reflects a component of dilution. Transfuse for hemoglobin less than 7 or as needed for symptomatic anemia.
Antiemetics as needed, continue olanzapine
Monitor for stella
Not neutropenic
She has labs scheduled at [place] next Friday, she plans to request IV fluids weekly through her primary oncology office
Patient History
History of Present Illness
48-year-old female with recurrent endometrial CA stage II diagnosed 2020 presented to [facility] 03/06/2024 with fatigue and decreased appetite. She is undergoing chemo and immunotherapy at [facility] for recurrent endometrial
ca. She was admitted last month with fever of unknown origin. She takes pantoprazole, pepcid, and tums for GERD. She takes olanzapine and prochlorperazine for appetite and nausea. Admission CBC notable for WBC 23.7, hemoglobin 9.3, MCV 76.1,
platelet count 450, CMP with transaminitis AST 118, ALT 38, total bilirubin 0.6, normal renal function. CT abdomen and pelvis redemonstrates a large heterogeneous soft tissue mass within the anterior abdomen and pelvis measuring up to 24.6 x 16.2 x
24.1 cm, increased from prior and most in keeping with recurrent endometrial carcinoma. Increased right-sided peritoneal implant, and slightly progressed mild to moderate bilateral hydronephrosis. CT of the chest is pending. Blood culture is
negative to date. Influenza A and B negative. Echocardiogram with normal LVEF.
Clinically, denies fever, chills, cough, chest pain, palpitations. Denies overt bleeding. She tells me that she started on single agent doxorubicin last Friday as a result of her most recent scans. She denies any G-CSF, however was given
additional steroids following her doxorubicin for nausea.
Tmax 100.3, no hypoxia, hypotension resolved.
Past-Medical/Surgical History
Past medical history/surgical history endometrial CA status post hysterectomy and chemotherapy, cholecystectomy, GERD, anxiety,
Social, never smoker, denies alcohol or recreational drug use. Currently not working. Lives with mom.
Family: Maternal aunt with liver cancer
Patient Medication
�Medication �Instructions �Recorded �Confirmed �Last Taken �Type
calcium carbonate (Tums) 200 mg PO BIDPRN PRN gerd 09/21/23 03/07/24 Unknown History
dicyclomine 10 mg capsule 10 mg PO HS Gastrointestinal Issue 09/21/23 03/07/24 09/20/23 History
olanzapine 5 mg tablet 5 mg PO HS Mental Health/Anxiety 09/21/23 03/07/24 09/20/23 History
prochlorperazine maleate 10 mg 10 mg PO Q8HPRN PRN nausea 09/21/23 03/07/24 09/20/23 History
tablet
pantoprazole 40 mg tablet,delayed 40 mg PO DAILY Gastrointestinal 09/25/23 03/07/24 Unknown Rx
release issue #30 tabs
acetaminophen 500 mg tablet 1,000 mg PO DAILYPRN PRN mild 03/07/24 03/07/24 Unknown History
(Tylenol Extra Strength) pain/fever
dexamethasone 4 mg tablet 4 mg PO DIRECTED 03/07/24 03/07/24 Unknown History
Anti-Inflammatory
docusate sodium 100 mg capsule 100 mg PO DAILY PRN constipation 03/07/24 03/07/24 Unknown History
(Stool Softener)
famotidine 20 mg tablet 20 mg PO BID Gastrointestinal Issue 03/07/24 03/07/24 Unknown History
levothyroxine 25 mcg tablet 25 mcg PO DAILY Thyroid 03/07/24 03/07/24 Unknown History
lidocaine 5 % topical patch 1 patch topical HS apply to lower 03/07/24 03/07/24 Unknown History
back
magnesium oxide 400 mg PO DAILY Electrolyte 03/07/24 03/07/24 Unknown History
Repletion
polyethylene glycol 3350 17 gram 17 g PO DAILY PRN constipation 03/07/24 03/07/24 Unknown History
oral powder packet (Miralax)
Active Medications
Generic Name Dose Route Start Last Admin
Trade Name Freq PRN Reason Stop Dose Admin
Acetaminophen 650 mg 03/07/24 00:34 03/08/24 14:11
Acetaminophen 325 Mg Tablet PO 04/04/24 00:33 650 mg
Q6HPRN PRN Administration
mild pain/ fever>100.5F
Calcium Carbonate 500 tablet 03/07/24 00:34 03/07/24 15:28
Calcium Carbonate 500 Mg (Regular-Strength) Chew Tablet PO 04/04/24 00:33 1 tablet
BIDPRN PRN Administration
gerd
Calcium Carbonate 1 tablet 03/07/24 15:37 03/07/24 21:03
Calcium Carbonate 500 Mg (Regular-Strength) Chew Tablet PO 04/04/24 15:36 1 tablet
BIDPRN PRN Administration
gerd
Cefepime HCl 2,000 mg 03/07/24 16:00 03/08/24 08:49
Cefepime Hcl 2,000 Mg/12.5 Ml Vial IV 2,000 mg
Q8 SIXTO Administration
Dicyclomine HCl 10 mg 03/07/24 22:00 03/07/24 21:06
Dicyclomine 10 Mg Capsule PO 04/04/24 21:59 10 mg
HS SIXTO Administration
Enoxaparin Sodium 40 mg 03/07/24 18:00 03/07/24 17:18
Enoxaparin Sodium 40 Mg/0.4 Ml Syringe SC 04/04/24 17:59 40 mg
QPM SIXTO Administration
Famotidine 20 mg 03/07/24 00:34 03/07/24 21:04
Famotidine 20 Mg Tablet PO 04/04/24 00:33 20 mg
HS SIXTO Administration
Sodium Chloride 1,000 mls @ 100 mls/hr 03/07/24 00:34 03/08/24 08:48
Nss IV Not Given
.Q10H SIXTO
Metronidazole 100 mls @ 100 mls/hr 03/07/24 16:00 04/15/24 08:49
Flagyl 500 Mg IV 100 mls
Q8H SIXTO Administration
Vancomycin HCl 1,250 mg/ 275 mls @ 183.33 mls/hr 03/08/24 06:00 03/08/24 05:34
Sodium Chloride IV 275 mls
Q12H SIXTO Administration
Protocol
Lidocaine 1 patch 03/07/24 09:45 03/08/24 08:49
Lidocaine 4% Topical Patch TOPICAL 04/04/24 09:44 Not Given
DAILY SIXTO
Olanzapine 5 mg 03/07/24 00:34 03/07/24 21:04
Olanzapine 5 Mg Tablet PO 04/04/24 00:33 5 mg
HS SIXTO Administration
Ondansetron HCl 4 mg 03/07/24 00:34 03/08/24 05:41
Ondansetron 4 Mg/2 Ml Vial IV 04/04/24 00:33 4 mg
Q6HPRN PRN Administration
NAUSEA/VOMITING
Pantoprazole Sodium 40 mg 03/07/24 08:00 03/08/24 08:49
Pantoprazole 40 Mg Delayed Release Tablet PO 04/04/24 07:59 40 mg
DAILY SIXTO Administration
Patch Removal 0 patch 03/07/24 20:00 03/07/24 20:59
Remove Lidocaine Patch REMOVE 04/04/24 19:59 1 patch
DAILY@2000 SIXTO Administration
Prochlorperazine Maleate 10 mg 03/07/24 22:00 03/07/24 21:04
Prochlorperazine 10 Mg Tablet PO 04/04/24 21:59 Not Given
HS SIXTO
Sodium Chloride 0 flush 03/07/24 01:00
Sodium Chloride 0.9% (Flush) Syringe IV 04/04/24 00:59
PER PROTOCOL SIXTO
Sterile Water 10 ml 03/07/24 16:00 03/08/24 08:49
Sterile Water For Injection 10 Ml Vial IV 04/04/24 15:59 10 ml
Q8 SIXTO Administration
Thiamine HCl 100 mg 03/07/24 20:00 03/08/24 08:49
Thiamine 100 Mg Tablet PO 04/04/24 19:59 100 mg
BID SIXTO Administration
Review of Systems
-
Review of systems notable for HPI, otherwise negative
Physical Exam
-
General: Appears Chronically Ill
HEENT: Negative Jaundice
Cardiology: S1 and S2
GI: Soft
Musculoskeletal: No Edema
Neurology: Other (Flat affect, nonfocal, poor memory)
Skin: Warm
Labs
Lab Results
WBC 20.7 10^3/uL (4.8-10.8) H 03/08/24 12:56
RBC 3.18 10^6/uL (4.20-5.40) L 03/08/24 12:56
Hgb 7.7 g/dL (12.0-16.0) L 03/08/24 12:56
Hct 25.5 % (37.0-47.0) L 03/08/24 12:56
MCV 80.2 fL (81.0-99.0) L 03/08/24 12:56
MCH 24.2 pg (27.0-31.0) L 03/08/24 12:56
MCHC 30.2 g/dL (33.0-37.0) L 03/08/24 12:56
RDW 19.8 % (11.5-14.5) H 03/08/24 12:56
Plt Count 315 10^3/uL (130-400) 03/08/24 12:56
MPV 10.5 fL (7.4-10.4) H 03/08/24 12:56
Abs Immat Gran (auto) 0.3 10^3/uL (0-0.05) H 03/08/24 12:56
Absolute Neuts (auto) 18.8 10^3/uL (1.4-6.5) H 03/08/24 12:56
Absolute Lymphs (auto) 0.7 10^3/uL (1.2-3.4) L 03/08/24 12:56
Absolute Monos (auto) 0.8 10^3/uL (0.1-0.6) H 03/08/24 12:56
Absolute Eos (auto) 0.1 10^3/uL (0-0.7) 03/08/24 12:56
Absolute Basos (auto) 0.0 10^3/uL (0-0.2) 03/08/24 12:56
Immature Gran % 1.4 % (0-0.5) H 03/08/24 12:56
Neutrophils % 90.9 % (42.2-75.2) H 03/08/24 12:56
Lymphocytes % 3.4 % (20.5-51.1) L 03/08/24 12:56
Monocytes % 3.8 % (1.7-9.3) 03/08/24 12:56
Eosinophils % 0.4 % (0-6) 03/08/24 12:56
Basophils % 0.1 % (0-2) 03/08/24 12:56
Creatinine 0.8 mg/dL (0.6-1.0) 03/07/24 01:32
Vital Signs
Vital Signs
Temp Pulse Resp BP Pulse Ox
98.4 F 111 16 97/60 100
03/08/24 11:00 03/08/24 11:00 03/08/24 11:00 03/08/24 11:00 03/08/24 11:00
[2024-03-08 14:31] LABS: TSH 2.48 uIU/ml (0.47-4.68)
--- NOTE | 2024-03-08 15:12 | PTCARENOTE ---
Patient having new chest pressure and L arm pain. Pt. c/o of intermittent nausea. MD made aware. Bp is 97/57, HR 116 and pulse ox 96% on RA. EKG completed and sent to MD. Jaspal and keren given per prn order. No new orders at this time. Pt going for
CAT of chest at 1600.
[2024-03-08] MEDS: TUMS 1 TABLET PO (15:15)
[2024-03-08] MEDS: LOVENOX 40 MG SC (17:01)
[2024-03-08] MEDS: COMPAZINE 10 MG PO (21:31)
[2024-03-08] MEDS: PEPCID 20 MG PO (21:31)
[2024-03-08] MEDS: BENTYL 10 MG PO (21:35)
[2024-03-08] MEDS: ZYPREXA 5 MG PO (21:35)
[2024-03-09 03:35] VITALS: BP 101/58
[2024-03-09] MEDS: ULTRAM 25 MG PO (04:02)
[2024-03-09 06:24] LABS: % Basophils 0.1 % (0-2); % Eosinophils 0.9 % (0-6); % Lymphocytes 3.1 % (20.5-51.1); % Monocytes 3.2 % (1.7-9.3); % Neutrophils 91.7 % (42.2-75.2); Absolute Eosinophils 0.1 10^3/uL (0-0.7); Absolute Immature Granulocytes 0.1 10^3/uL (0-0.05); Absolute Lymphocytes 0.4 10^3/uL (1.2-3.4); Absolute Monocytes 0.4 10^3/uL (0.1-0.6); Absolute Neutrophils 11.8 10^3/uL (1.4-6.5); Hematocrit 22.5 % (37.0-47.0); Mean Corp Hgb Conc. 31.1 g/dL (33.0-37.0); Mean Corpuscular Hgb 24.6 pg (27.0-31.0); Mean Corpuscular Volume 79.2 fL (81.0-99.0); Mean Platelet Volume 10.4 fL (7.4-10.4); Nucleated Red Blood Cells % 0 %; Platelet Count 241 10^3/uL (130-400); Red Blood Cell Count 2.84 10^6/uL (4.20-5.40); Red Cell Dist. Width 19.7 % (11.5-14.5); Reticulocyte Count 1.1 % (0.4-2.8); White Blood Cell Count 12.9 10^3/uL (4.8-10.8)
[2024-03-09 06:52] LABS: ALT (SGPT) 24 U/L (0-35); AST (SGOT) 109 U/L (14-36); Albumin 2.6 g/dl (3.5-5.0); Alkaline Phosphatase 91 U/L (38-126); Blood Urea Nitrogen 9 mg/dl (7-17); Calcium 8.1 mg/dl (8.4-10.2); Carbon Dioxide 28 mmol/L (22-30); Chloride 104 mmol/L (98-107); Estimated Creatinine Clearance 118 ml/min; Glucose 83 mg/dl (70-99); Potassium 3.7 mmol/L (3.5-5.1); Sodium 133 mmol/L (135-145); Total Bilirubin 0.2 mg/dl (0.2-1.3); Total Protein 4.8 g/dl (6.3-8.2); eGFR > 60.00
[2024-03-09 07:00] VITALS: BP 104/63
[2024-03-09] MEDS: LIDOCAINE 4% PATCH 1 PATCH TOPICAL (08:24)
[2024-03-09] MEDS: PROTONIX 40 MG PO (08:24)
[2024-03-09] MEDS: VITAMIN B1 100 MG PO (08:24)
[2024-03-09] MEDS: TUMS 1 TABLET PO (08:26)
--- NOTE | 2024-03-09 09:12 | W.PN.HOSP.TC ---
Addendum entered and electronically signed by Paresh Armstrong DO 03/09/24 13:28:
Hyponatremia
Original Note:
Today's Communication/Plan
-
Transfuse
Discharge
Assessment / Plan
Assessment / Plan
Gen-AAOx3, NAD
HEENT-NC, AT, anicteric, clear oral mm
Neck-supple
CV-reg, no M, +S1/S2, mildly tachycardic
Lungs-clear B/L
Abd-soft, NT, ND
Ext-no edema
Musculoskeletal-no cyanosis, clubbing
Skin-warm and dry
Neuro-grossly non-focal
Psych-calm, cooperative
Acute on chronic anemia -microcytic. Hemoglobin down to 7.0 today. Etiology of acute anemia unclear. She had an episode of chest pressure yesterday, with ongoing tachycardia, favor transfusing 1 unit of blood today. Patient agreeable. She has
had transfusions in the past. CBC to be checked within 1 week with [facility]. Patient eager to go home after transfusion.
SIRS -no evidence of infection currently. Suspect leukocytosis related to high-dose steroid administration last week with her chemotherapy. May have received a dose of G-CSF prior to admission. Blood cultures negative so far. COVID and influenza
negative.
White blood cell count trending down. CT abdomen pelvis without signs of obvious infection. Antibiotics discontinued by ID.
Chronic Sinus Tachycardia -partly explained by her anemia. TSH normal. D-dimer elevated but CT chest negative for pulmonary embolism. Does show enlarged pulmonary arteries possibly consistent with pulmonary hypertension. Findings discussed with
patient. Outpatient follow-up recommended.
Hypotension - likely secondary to volume depletion. Blood pressure appears to be at baseline. 104/63 this morning.
Recurrent endometrial CA 2022 with large abdominal tumor follows at [facility]-patient unclear of stage. Last dose of chemotherapy was a week ago.
Treated 2020 with hysterectomy and chemo? /Completed course of Keytruda unsure when
On new chemo regimen first dose was 02/03, second dose 03/03/2024 gets every 4 weeks
-Port left upper chest wall
#Chronic transaminitis
#History of known endometrial CA mets to abdomen
Follow CMP
Obesity due to excess calories
Full code
Dispo -can discharge today after transfusion. Close outpatient follow-up with PCP, oncology.
32 minutes spent in discharge process.
Anticipated Discharge: Today
Subjective/Interval History
-
Date of Service: March 09, 2024
Patient seen and examined. Feeling better overall. No complaints.
Objective Data
-
Labs:
Laboratory Results
03/09/24
05:30
WBC 12.9 H
Hgb 7.0 L
Hct 22.5 L
Plt Count 241 D
Sodium 133 L
Potassium 3.7
Chloride 104
Carbon Dioxide 28
BUN 9
Creatinine 0.7
Glucose 83
Calcium 8.1 L
Total Bilirubin 0.2
AST 109 H
ALT 24
Alkaline Phosphatase 91
Vital Signs:
Vital Signs
Temp Pulse Resp BP Pulse Ox
98.3 F 119 16 104/63 95
03/09/24 07:00 03/09/24 07:00 03/09/24 07:00 03/09/24 07:00 03/09/24 07:00
I&O
03/08/24 03/09/24 03/10/24
06:59 06:59 06:59
Intake Total 2775 / 2775 3820 / 3820
Balance 2775 / 2775 3820 / 3820
Review of Systems
-
History Source: Patient
All other systems: Reviewed and negative
--- NOTE | 2024-03-09 09:21 | W.DS.TRANS ---
DC Summary - Teleprinter
-
Discharge Instructions:
Discharge Diagnosis/Procedures Symptomatic anemia, endometrial cancer,
chemotherapy side effects
Diet Regular
Activity As tolerated
Driving Restrictions As prior to admission
Bathing Restrictions None
Blood Work CBC within 1 week
Instructions:
Stand-Alone Forms:
Changes to Home Medications: No
Discharge Medications:
DC Medications w/original date entered in [employer]
calcium carbonate (Tums) 200 mg PO BIDPRN PRN gerd 09/21/23
dicyclomine 10 mg capsule 10 mg PO HS Gastrointestinal Issue 09/21/23
olanzapine 5 mg tablet 5 mg PO HS Mental Health/Anxiety 09/21/23
prochlorperazine maleate 10 mg tablet 10 mg PO Q8HPRN PRN nausea 09/21/23
pantoprazole 40 mg tablet,delayed release 40 mg PO DAILY Gastrointestinal issue #30 tabs 09/25/23
acetaminophen 500 mg tablet (Tylenol Extra Strength) 1,000 mg PO DAILYPRN PRN mild pain/fever 03/07/24
docusate sodium 100 mg capsule (Stool Softener) 100 mg PO DAILY PRN constipation 03/07/24
famotidine 20 mg tablet 20 mg PO BID Gastrointestinal Issue 03/07/24
levothyroxine 25 mcg tablet 25 mcg PO DAILY Thyroid 03/07/24
lidocaine 5 % topical patch 1 patch topical HS apply to lower back 03/07/24
magnesium oxide 400 mg PO DAILY Electrolyte Repletion 03/07/24
polyethylene glycol 3350 17 gram oral powder packet (Miralax) 17 g PO DAILY PRN constipation 03/07/24
thiamine HCl (vitamin B1) 100 mg tablet 100 mg PO DAILY #30 tabs 03/09/24
Home Medication Changes
Pending Results: No
--- NOTE | 2024-03-09 09:47 | CM ---
Reviewed the chart notes. IMM signed and placed on the chart. The patient is being discharged today to home after receiving PRBC. The patient's mother will provide transportation. CM continues to be available to patient/family and is monitoring
medical plan for needs at discharge.
Plan: Discharge to home today with no additional needs being identified at this time.
[2024-03-09] MEDS: TYLENOL 650 MG PO (11:00)
[2024-03-09 11:02] VITALS: BP 103/58
--- NOTE | 2024-03-09 11:11 | W.PN.ONC ---
Addendum entered and electronically signed by Lata Richard MD 03/09/24 14:20:
agree w/ plan as outlined below
Original Note:
Today's Communication / Plan
-
03/09 WBC 12.9, Hgb 7, Hct 22.5
1unit blood ordered
Transfuse as needed to maintain Hgb >7
Reticulocyte count 1.1
Continue Olanzapine
Supportive care
She has labs and follow up scheduled at [place] next week.
Discharge planning following transfusion.
Impression
Impression
Recurrent endometrial cancer ([facility], Dr. Walls)
Acute on chronic anemia
Leukocytosis
Fatigue
Tachycardia
Subjective/Objective
Subjective/Objective
Patient is sitting on the side of the bed eating breakfast. She reports feeling quite tired/fatigued.
Vital Signs:
Vital Signs
Temp Pulse Resp BP Pulse Ox
99.7 F 112 16 103/58 95
03/09/24 11:02 03/09/24 11:02 03/09/24 11:02 03/09/24 11:02 03/09/24 11:02
physical exam:
aaox3, flat affect, pallor
appears chronically ill
HR tachycardic, room air
No edema
Lab Results:
Laboratory Data
WBC 12.9 10^3/uL (4.8-10.8) H 03/09/24 05:30
Hgb 7.0 g/dL (12.0-16.0) L 03/09/24 05:30
Plt Count 241 10^3/uL (130-400) D 03/09/24 05:30
eGFR > 60.00 03/09/24 05:30
[2024-03-09 11:22] VITALS: BP 103/58
[2024-03-09 11:45] VITALS: BP 108/63
--- NOTE | 2024-03-09 12:12 | PN.CDI ---
CDI
- -
CDI:
Physician Documentation Request
Admit Date: 03/09/24 08:28
Dear Doctor Patti,
Clinical Indicators:
Patient admitted with recurrent endometrial cancer; currently undergoing chemotherapy.
NSS 1L IV bolus + maintenance fluids given.
Sodium levels:
03/06/24 03/07/24 03/09/24
21:26 01:32 05:30
Sodium 133 L 134 L 133 L
Based on the above, could you clarify in the progress notes, the appropriate diagnosis, if significant, that supports the above abnormalities and additional evaluation, monitoring and/or treatment rendered:
Hyponatremia
Abnormal lab values, clinically insignificant
Other, please specify
Use of terms such as suspected, likely, concern for, or probable (associated with a specific diagnosis that is being evaluated, monitored, or treated as if it exists) are acceptable and can be coded in the inpatient setting, when documented at the
time of discharge.
Thank you,
STEF Nicholas RN
CDI Specialist
available via tiger text
Please use your independent medical judgment in providing your response.
[2024-03-09 14:44] VITALS: BP 105/63
== END 2024-03-09 15:29 | disposition home or self-care (01) | DRG 755 ==
LOC: 2 NORTH 08:28
PROVIDERS: Clinical Nurse Specialist Family Health; ADMITTING PHYSICIAN Internal Medicine; ATTENDING PHYSICIAN Hospitalist; EMERGENCY PHYSICIAN Student in an Organized Health Care Education/Training Program; FAMILY PHYSICIAN Family Medicine; OTHER PHYSICIAN Internal Medicine Hematology & Oncology; OTHER PHYSICIAN Internal Medicine Infectious Disease
DX: C54.1 Malignant neoplasm of endometrium (principal); C79.89 Secondary malignant neoplasm of other specified sites; N13.6 Pyonephrosis; E87.1 Hypo-osmolality and hyponatremia; D84.9 Immunodeficiency, unspecified; I95.9 Hypotension, unspecified; E86.9 Volume depletion, unspecified; T45.1X5A Adverse effect of antineoplastic and immunosuppressive drugs, initial encounter; D63.8 Anemia in other chronic diseases classified elsewhere; Z85.42 Personal history of malignant neoplasm of other parts of uterus; E66.09 Other obesity due to excess calories; Z68.32 Body mass index [BMI] 32.0-32.9, adult
CPT/HCPCS: 71046; 71275; 74177; 80053; 81003; 81015; 83605; 84443; 85025; 85045; 85379; 86850; 86900; 86901; 86920; 87040; 87502; 87811; 92610; 93005; 93306; 93356; 96361; 96365; 96375; 97162; 97166; 99285; P9016; Q9967

== ENCOUNTER 2024-04-06 07:39 | Emergency (ER) | payer OTHER, SELFPAY ==
[2024-04-06 07:44] VITALS: BP 111/66
[2024-04-06 08:00] VITALS: BP 103/74
--- NOTE | 2024-04-06 08:15 | ED.GENMED ---
History of Present Illness
General
Chief Complaint: Heart Rate Problem
Source: patient and family
Time Seen by Provider: 04/06/24 07:54
Travel History
Have you had any contact with someone who has COVID-19?: No
Do you have any symptoms of coronavirus? Fever > 100 degrees, chills, cough, shortness of breath, sore throat, loss of taste or smell, muscle aches, or headache?: No
History of Present Illness
History of Present Illness:
48-year-old female brought to the emergency room for evaluation of nausea, vomiting, weakness. Patient is undergoing chemotherapy for endometrial cancer. She received treatment about a week ago. She is been having significant weakness and
decreased oral intake due to anorexia. When she does eat or drink she is able to keep it down but she just has no desire. No fever or chills. She does have diarrhea once or twice a day. She does vomit a couple times a day.
Past History
Past History
ED Past Medical History: Cancer (Endometrial), GERD, Psychiatric (Anxiety, ) and Other (Sciatic pain, Sleep apnea, UTI, )
ED Past Surgical History: Cholecystectomy and Gynecological (Hysterectomy)
Social History
Tobacco: Non-smoker
Alcohol: None
Drug: None
Personal: Single
Living: with family
Phy Exam
Physical Exam
Physical Exam:
General: Awake, Alert, Oriented X3. No acute distress.
Vitals: Tachycardic
Head: Atraumatic
Eyes: Pupils equal, EOMI
Throat: Airway intact, no exudates, dry mucosa
Neck: Trachea midline
Lungs: Clear and equal b/l
Heart: Regular rate, no murmurs
Abd: Soft, Nontender, No pulsatile mass
Neuro: Nonfocal
Skin: Warm, dry, no rash
Extremities: pulses equal b/l, no edema
Course
Orders/Labs/Results
Orders:
Orders
04/06/24 07:47
EKG [Electrocardiogram (*1)] Urgent
Reason for Study: Palpitations
EKG- Treatment ONCE
04/06/24 08:10
0.9% Sodium Chloride 1000 ml [Nss] 1,000 ml IV BOLUS
04/06/24 08:31
Type+Screen Urgent
Amylase Urgent
Complete Blood Count/With Diff Urgent
Comprehensive Metabolic Panel Urgent
Lipase Urgent
04/06/24 08:32
Urinalysis Reflex To Culture Urgent
Date Specimen was Collected: 04/06/24
Time Specimen was Collected: 08:18
Urine Microscopic Reflex Cult Urgent
04/06/24 09:09
Ondansetron Injectable [Zofran] 8 mg IV NOW STA
04/06/24 10:10
Add On- LAB Urgent
Tests Added?: cmp, lipase
Abnormal Lab Results
04/06/24 04/06/24
08:31 08:32
WBC 19.2 H 10^3/uL
(4.8-10.8)
RBC 3.66 L 10^6/uL
(4.20-5.40)
Hgb 8.8 L g/dL
(12.0-16.0)
Hct 28.5 L %
(37.0-47.0)
MCV 77.9 L fL
(81.0-99.0)
MCH 24.0 L pg
(27.0-31.0)
MCHC 30.9 L g/dL
(33.0-37.0)
RDW 22.0 H %
(11.5-14.5)
MPV 10.6 H fL
(7.4-10.4)
Abs Immat Gran (auto) 0.2 H 10^3/uL
(0-0.05)
Absolute Neuts (auto) 17.6 H 10^3/uL
(1.4-6.5)
Absolute Lymphs (auto) 0.7 L 10^3/uL
(1.2-3.4)
Immature Gran % 0.8 H %
(0-0.5)
Neutrophils % 91.6 H %
(42.2-75.2)
Lymphocytes % 3.9 L %
(20.5-51.1)
Potassium 3.4 L mmol/L
(3.5-5.1)
Creatinine 0.5 L mg/dL
(0.6-1.0)
AST 122 H U/L
(14-36)
Total Protein 5.3 L g/dl
(6.3-8.2)
Albumin 3.2 L g/dl
(3.5-5.0)
Urine Ketones 2+ A
(Negative)
Urine Bilirubin 1+ A
(Negative)
Urine Urobilinogen 2+ A
(Neg - 1+)
Leukocyte Esterase Rfl Trace A
(Negative)
Urine Bacteria (Reflex) Few A
(Negative)
04/06/24 08:31
04/06/24 08:31
Vital Signs
Initial and Last Documented VS:
Initial Vital Signs
Temp Pulse Resp BP Pulse Ox
98.3 F 135 16 111/66 98
04/06/24 07:44 04/06/24 07:44 04/06/24 07:44 04/06/24 07:44 04/06/24 07:44
Last Documented Vital Signs
Temp Pulse Resp BP Pulse Ox
98.3 F 116 16 116/66 97
04/06/24 07:44 04/06/24 11:54 04/06/24 11:54 04/06/24 11:54 04/06/24 11:54
MDM/Problems Addressed
Differential Diagnosis Includes:
dehydration, uti, anemia, electrolyte abn
MDM/Problems Addressed:
Patient feels better after IV fluids. Labs show a elevated white blood cell count but this is likely due to Neulasta. Hemoglobin is adequate at 8.8. Patient tolerating oral intake at this point.
Acute Exacerbation and/or Progression of Chronic Illness: Cancer (Endometrial cancer)
*Pulse Oximetry
Patient hypoxic: no
*EKG
Interpreted by ED Provider?: Yes
Interpretation: abnormal
Heart Rate: 127
Rate: tachycardiac
Rhythm: sinus tachycardia
[place]: normal axis
Interval: normal interval
QRS Pattern: normal QRS
Ischemia: non-specific ST changes
*Assembly Room Supervisor Interpretation
Rate: tachycardiac
Interpretation: abnormal
Heart Rate: 127
Rhythm: sinus tachycardia
*Critical Care Note
Total Time (30-74mins, 75-104mins- exclusive of procedures): Not Applicable
Patient Management
Social determinants of health affecting care: Strong social support
ED Attending Note
-
Portions of this chart may have been created with voice recognition software.� Occasional wrong word or��sound alike� substitutions may have occurred due to the inherent limitations of voice recognition software.
Discharge Plan
Departure
Patient Disposition: Home (Routine Discharge)
Date of Disposition: 04/06/24
Time of Disposition: 11:50
Patient with high blood pressure during this ER visit?: No
Condition: Good
Discharge Problem:
Acute dehydration, Chemotherapy-induced fatigue, Nausea & vomiting
Instructions: Dealing with Fatigue from the Drugs You Take, Dealing With Nausea and Vomiting From the Drugs You Take, Dehydration, Adult ED
Prescriptions:
No Action
olanzapine 5 mg tablet
5 mg PO HS
prochlorperazine maleate 10 mg Tablet
10 mg PO Q8HPRN PRN (Reason: nausea)
calcium carbonate [Tums] 200 mg calcium (500 mg) Tablet,Chewable
200 mg PO BIDPRN PRN (Reason: gerd)
dicyclomine 10 mg Capsule
10 mg PO HS
polyethylene glycol 3350 [Miralax] 17 gram Powder In Packet
17 g PO DAILY PRN (Reason: constipation)
acetaminophen [Tylenol Extra Strength] 500 mg Tablet
1,000 mg PO DAILYPRN PRN (Reason: mild pain/fever)
levothyroxine 25 mcg Tablet
25 mcg PO HS
famotidine 20 mg Tablet
20 mg PO HS
lidocaine 5 % Adhesive Patch,Medicated
1 patch TOPICAL HS
magnesium oxide 400 mg magnesium Tablet
400 mg PO HS
pantoprazole 40 mg tablet,delayed release (DR/EC)
40 mg PO HS
Referrals:
Taurus Schwab MD [Family Provider] -
Interventions
Interventions:
*Risk Screen - Suicide Last Done: 04/06/24 08:03
*General Assessment Last Done: 04/06/24 08:03
*Neglect/Abuse Screening Last Done: 04/06/24 08:03
ED- Fall Risk Assessment Last Done: 04/06/24 12:16
*ED COVID-19 Vaccine History Last Done: 04/06/24 07:58
*Nursing Disposition Last Done: 04/06/24 12:16
ED- Cardiac Assessment Last Done: 04/06/24 08:04
ED- Pulmonary Assessment Last Done: 04/06/24 08:04
Discharge Date and Time
Discharge Date/Time: 04/06/24 12:16
Print Language: YAKUT
[2024-04-06] MEDS: NSS 1000 IV (08:33)
[2024-04-06 08:46] LABS: Urine Albumin Trace (Neg - Trace); Urine Bilirubin 1+ (Negative); Urine Character Clear (Clear); Urine Color Yellow; Urine Glucose Negative (Negative); Urine Ketone 2+ (Negative); Urine Leukocyte Trace (Negative); Urine Nitrite Negative (Negative); Urine Occult Blood Negative (Negative); Urine Specific Gravity 1.015 (<1.030); Urine Urobilinogen 2+ (Neg - 1+)
[2024-04-06 08:52] LABS: % Basophils 0.2 % (0-2); % Eosinophils 0.3 % (0-6); % Immature Granulocytes 0.8 % (0-0.5); % Lymphocytes 3.9 % (20.5-51.1); % Monocytes 3.2 % (1.7-9.3); % Neutrophils 91.6 % (42.2-75.2); Absolute Eosinophils 0.1 10^3/uL (0-0.7); Absolute Immature Granulocytes 0.2 10^3/uL (0-0.05); Absolute Lymphocytes 0.7 10^3/uL (1.2-3.4); Absolute Monocytes 0.6 10^3/uL (0.1-0.6); Absolute Neutrophils 17.6 10^3/uL (1.4-6.5); Hematocrit 28.5 % (37.0-47.0); Hemoglobin 8.8 g/dL (12.0-16.0); Mean Corp Hgb Conc. 30.9 g/dL (33.0-37.0); Mean Corpuscular Volume 77.9 fL (81.0-99.0); Mean Platelet Volume 10.6 fL (7.4-10.4); Nucleated Red Blood Cells % 0 %; Platelet Count 367 10^3/uL (130-400); Red Blood Cell Count 3.66 10^6/uL (4.20-5.40); White Blood Cell Count 19.2 10^3/uL (4.8-10.8)
[2024-04-06 08:55] LABS: Amylase 39 U/L (30-110)
[2024-04-06 09:01] VITALS: BP 100/76
[2024-04-06] MEDS: ZOFRAN 8 MG IV (09:13)
[2024-04-06 09:25] LABS: Urine Squamous Cell 16-20 /LPF (Few)
[2024-04-06 09:26] LABS: Urine Bacteria Few (Negative)
[2024-04-06 09:27] LABS: Urine Red Blood Cell 0-2 /HPF (0-2)
[2024-04-06 10:43] VITALS: BP 98/63
[2024-04-06 11:00] VITALS: BP 106/68
[2024-04-06 11:12] LABS: ALT (SGPT) 24 U/L (0-35); AST (SGOT) 122 U/L (14-36); Albumin 3.2 g/dl (3.5-5.0); Alkaline Phosphatase 93 U/L (38-126); Blood Urea Nitrogen 9 mg/dl (7-17); Calcium 8.7 mg/dl (8.4-10.2); Carbon Dioxide 22 mmol/L (22-30); Chloride 107 mmol/L (98-107); Glucose 96 mg/dl (70-99); Lipase 24 U/L (23-300); Potassium 3.4 mmol/L (3.5-5.1); Sodium 140 mmol/L (135-145); Total Bilirubin 0.6 mg/dl (0.2-1.3); Total Protein 5.3 g/dl (6.3-8.2); eGFR > 60.00
[2024-04-06 11:54] VITALS: BP 116/66
== END 2024-04-06 12:16 | disposition home or self-care (01) ==
LOC: EMR 07:39
PROVIDERS: EMERGENCY PHYSICIAN Emergency Medicine; FAMILY PHYSICIAN Family Medicine
DX: E86.0 Dehydration (principal); T45.1X5A Adverse effect of antineoplastic and immunosuppressive drugs, initial encounter; R53.83 Other fatigue; R11.2 Nausea with vomiting, unspecified; K21.9 Gastro-esophageal reflux disease without esophagitis; F41.9 Anxiety disorder, unspecified
CPT/HCPCS: 99283; 96374; 96361; 80053; 81003; 81015; 82150; 83690; 85025; 86850; 86900; 86901; 93005